=== PATIENT | male | born 1940 | race Caucasian/White ===

== ENCOUNTER 2016-07-27 21:42 | Inpatient (IN) | payer MEDICARE, OTHER ==
[~2016-07-27] VITALS: Ht 175.3 cm; Wt 74.3 kg
[~2016-07-27 21:42] MED LIST: 1-ME1LIQ OR; ASPI325T PO; CARV6.25 PO; CENTTAB9 PO; CINN500C7 PO; CLON-352 PO; FLUO20TA20 PO; GABA300C3 PO; HYDR-2768 PO; KLOR20TA6 PO; LANTUSP SQ; LISI40TA PO; MELA5CAP2 PO; NOVORP2 SQ; OMEGCAP2 OR; PRED10PA PO; SERT100 PO; SIMV40TA PO
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
--- NOTE | 2016-07-27 22:30 | RADRPT ---
EXAM DATE/TIME: 07/27/2016 22:04 [facility] COMPARISON: No previous studies available for comparison. INDICATIONS : Syncope, SOB MEDICAL HISTORY : Carcinoma, prostatic. SURGICAL HISTORY : None. ENCOUNTER: Initial ACUITY: 1 day PAIN SCORE: 2/10 LOCATION: chest FINDINGS: A single view of the chest demonstrates the lungs to be symmetrically aerated without evidence of mas s, infiltrate or effusion. The cardiomediastinal contours are unremarkable. Osseous structures are intact. CONCLUSION: No acute disease. Mahin Lewis MD on July 27, 2016 at 22:28 Board Certified Radiologist. This report was verified electronically.
[2016-07-27 22:39] VITALS: BP 148/72; PULSE 79; RESP 16; TEMP 98.7; O2SAT 100
[2016-07-27 23:09] LABS: APTT (PATIENT) 26.2 SEC (24.3-30.1); INTERNATIONAL NORMALIZED RATIO 1.7 RATIO; PROTHROMBIN TIME - PATIENT 19.2 SEC (9.8-11.6)
--- NOTE | 2016-07-27 23:31 | RADRPT ---
EXAM DATE/TIME: 07/27/2016 23:00 [facility] COMPARISON: No previous studies available for comparison. INDICATIONS : Altered mental status. RADIATION DOSE: 56.35 CTDIvol (mGy) MEDICAL HISTORY : Cerebrovascular disease. Carcinoma, prostate. SURGICAL HISTORY : None. ENCOUNTER: Initial ACUITY: 1 day PAIN SCALE: 0/10 LOCATION: cranial TECHNIQUE: Multiple contiguous axial images were obtained of the head. Using automated exposure control and adj ustment of the mA and/or kV according to patient size, radiation dose was kept as low as reasonably a chievable to obtain optimal diagnostic quality images. FINDINGS: There is marked central and cortical atrophy with dilatation of ventricular and sulcal spaces. Areas of low-attenuation are seen within the white matter. Old left basal ganglia lacunar infarct. There i s no parenchymal hemorrhage, acute infarction or mass lesion identified. There are no extra-axial fl uid collections appreciated. The posterior fossa is unremarkable with midline fourth ventricle. The portion of the orbits and paranasal sinuses visualized are unremarkable. Postsurgical changes in the soft tissues of the occipital region. CONCLUSION: 1. Cerebral atrophy and chronic ischemic small vessel vasculopathy. 2. A left-sided basal ganglia lacunar infarct. Mahin Lewis MD on July 27, 2016 at 23:27 Board Certified Radiologist. This report was verified electronically.
[2016-07-27 23:51] LABS: ALKALINE PHOSPHATASE 55 U/L (45-117); ALT (GPT) 47 U/L (12-78); ANION GAP 11 MEQ/L (5-15); AST (GOT) 44 U/L (15-37); BICARBONATE 23.7 MEQ/L (21.0-32.0); BLOOD UREA NITROGEN 35 MG/DL (7-18); CHLORIDE 101 MEQ/L (98-107); CREATINE KINASE 180 U/L (39-308); GLOMERULAR FILTRATION RATE 31 ML/MIN (>89); SODIUM (NA) 136 MEQ/L (136-145); TOTAL BILIRUBIN ADULT 1.1 MG/DL (0.2-1.0)
[2016-07-27 23:56] LABS: AUTOMATED NEUTROPHIL # 8.9 TH/MM3 (1.8-7.7); BASOPHIL % 0.4 % (0.0-2.0); EOSINOPHIL % 0.1 % (0.0-4.0); HEMATOCRIT 39.1 % (39.0-51.0); HEMO FLAGS DIFF FINAL; LYMPH % 10.2 % (9.0-44.0); LYMPHOCYTE # 1.1 TH/MM3 (1.0-4.8); MEAN CORPUSCULAR HEMOGLOBIN 32.6 PG (27.0-34.0); MEAN CORPUSCULAR HGB CONC 35.4 % (32.0-36.0); MONO % 9.8 % (0.0-8.0); NEUT % 79.5 % (16.0-70.0); PLATELET COUNT 195 TH/MM3 (150-450); RED BLOOD COUNT 4.26 MIL/MM3 (4.50-5.90); RED CELL DISTRIBUTION WIDTH 13.1 % (11.6-17.2); WHITE BLOOD COUNT 11.3 TH/MM3 (4.0-11.0)
[2016-07-28] MEDS ORDERED: NRDRIP (00:16)
[2016-07-28] MEDS ORDERED: LANTUS2P (00:16)
[2016-07-28] MEDS ORDERED: LISI-519 PO (00:16)
[2016-07-28] MEDS ORDERED: HYDR25TA5 PO (00:16)
[2016-07-28] MEDS ORDERED: GABA600T PO (00:16)
[2016-07-28] MEDS ORDERED: ASPI81TA81 (00:16)
[2016-07-28] MEDS ORDERED: CARV25TA PO (00:16)
[2016-07-28] MEDS ORDERED: MELAPOW2 (00:16)
[2016-07-28] MEDS ORDERED: FLUO20CA4 PO (00:16)
[2016-07-28] MEDS ORDERED: CHOL400D2 PO (00:16)
[2016-07-28] MEDS ORDERED: AMLO2.5T PO (00:16)
[2016-07-28] MEDS ORDERED: SIMV40TA PO (00:16)
[2016-07-28 00:18] LABS: ACETAMINOPHEN LESS THAN 2.0 MCG/ML (10.0-30.0); POTASSIUM 4.4 MEQ/L (3.5-5.1)
--- NOTE | 2016-07-28 00:30 | PD ---
Data Data Last Documented VS Vital Signs Date Time Temp Pulse Resp B/P Pulse Ox O2 Delivery O2 Flow Rate FiO2 07/27/16 22:39 98.7 79 16 148/72 100 Orders Electrocardiogram (07/27/16 21:56) Alcohol (Ethanol) (07/27/16 21:56) Ammonia (07/27/16 21:56) Complete Blood Count With Diff (07/27/16 21:56) Comprehensive Metabolic Panel (07/27/16 21:56) Creatine Kinase (Cpk) (07/27/16 21:56) Drug Screen, Random Urine (07/27/16 21:56) Prothrombin Time / Inr (Pt) (07/27/16 21:56) Act Partial Throm Time (Ptt) (07/27/16 21:56) Salicylates (Aspirin) (07/27/16 21:56) Troponin I (07/27/16 21:56) Tylenol (Acetaminophen) (07/27/16 21:56) Lactic Acid Sepsis Protocol (07/27/16 21:56) Urinalysis - C+S If Indicated (07/27/16 21:56) Blood Culture (07/27/16 21:56) Chest, Single Ap (07/27/16 21:56) Ct Brain W/O Iv Contrast(Rout) (07/27/16 21:56) Ecg Monitoring (07/27/16 21:56) Iv Access Insert/Monitor (07/27/16 21:56) Oximetry (07/27/16 21:56) Admit Order (Ed Use Only) (07/28/16 02:20) Labs Laboratory Tests Test 07/27/16 07/27/16 07/27/16 22:10 22:30 23:20 White Blood Count 11.3 TH/MM3 Red Blood Count 4.26 MIL/MM3 Hemoglobin 13.9 GM/DL Hematocrit 39.1 % Mean Corpuscular Volume 92.0 FL Mean Corpuscular Hemoglobin 32.6 PG Mean Corpuscular Hemoglobin 35.4 % Concent Red Cell Distribution Width 13.1 % Platelet Count 195 TH/MM3 Mean Platelet Volume 8.4 FL Neutrophils (%) (Auto) 79.5 % Lymphocytes (%) (Auto) 10.2 % Monocytes (%) (Auto) 9.8 % Eosinophils (%) (Auto) 0.1 % Basophils (%) (Auto) 0.4 % Neutrophils # (Auto) 8.9 TH/MM3 Lymphocytes # (Auto) 1.1 TH/MM3 Monocytes # (Auto) 1.1 TH/MM3 Eosinophils # (Auto) 0.0 TH/MM3 Basophils # (Auto) 0.0 TH/MM3 CBC Comment DIFF FINAL Differential Comment Prothrombin Time 19.2 SEC Prothromb Time International 1.7 RATIO Ratio Activated Partial 26.2 SEC Thromboplast Time Sodium Level 136 MEQ/L Potassium Level 4.4 MEQ/L Chloride Level 101 MEQ/L Carbon Dioxide Level 23.7 MEQ/L Anion Gap 11 MEQ/L Blood Urea Nitrogen 35 MG/DL Creatinine 2.12 MG/DL Estimat Glomerular Filtration 31 ML/MIN Rate Random Glucose 200 MG/DL Calcium Level 9.2 MG/DL Total Bilirubin 1.1 MG/DL Aspartate Amino Transf 44 U/L (AST/SGOT) Alanine Aminotransferase 47 U/L (ALT/SGPT) Alkaline Phosphatase 55 U/L Total Creatine Kinase 180 U/L Troponin I LESS THAN 0.02 NG/ML Total Protein 7.7 GM/DL Albumin 3.7 GM/DL Acetaminophen Level LESS THAN 2.0 MCG/ML Ethyl Alcohol Level LESS THAN 3 MG/DL Lactic Acid Level 1.4 mmol/L Ammonia 26 MCMOL/L Salicylates Level LESS THAN 1.7 MG/DL [facility] Medical Record Reviewed: Yes Supervised Visit with DEBORA: Yes Interpretation(s) CBC & BMP Diagram 07/27/16 22:10 Lactic acid 1.4 LFTs normal Ammonia 26 Tn < 0.02 Aspirin 1.7 APAP < 2.0 EtOH 3 Narrative Course I, Dr. Wu, have reviewed the advance practice practitioner's documentation and am in agreement, met with the patient face to face, made the diagnosis, and the medical decision making was done by me. *My assessment and Findings: She has had an altered mental status essentially described as inability to get up from a seated position. Evidently he was confused as well unable to state his location or the month of the year. Workup today reveals mild prerenal azotemia with some baseline intrinsic medical renal disease. He has received IV hydration. Based on history provided by the patient's landlord TIA may have occurred. Admission for further diagnostic evaluation considered reasonable. CBC & BMP Diagram 07/27/16 22:10 Tn < 0.02 LFTs normal Lactic acid 1.4 Ammonia 26 Salicylates < 1.7 APAP 2.0 EtOH < 3 EKG: normal sinus rhythm, rate 79, old septal infarct Diagnosis Primary Impression: Altered mental status Qualified Code: R41.82 - Altered mental status, unspecified altered mental status type Additional Impressions: Transient ischemic attack (TIA) Qualified Code: G45.9 - Transient cerebral ischemia, unspecified type Prerenal azotemia Admitting Information Admitting Physician Requests: Admit Condition: Stable Daron Wu MD Jul 28, 2016 00:30
[2016-07-28] MEDS ORDERED: ONDANSETRON HCL 4 MG/2 ML VIAL IVP PRN (02:45)
[2016-07-28] MEDS ORDERED: ACETAMINOPHEN/HYDROcodone 325 MG/5 MG TAB PO PRN (02:45)
[2016-07-28] MEDS ORDERED: BISACODYL 10 MG SUPP PR PRN (02:45)
[2016-07-28] MEDS ORDERED: GLUCAGON 1 MG/ML VIAL IM/SQ PRN (02:45)
[2016-07-28] MEDS ORDERED: SODIUM CHLORIDE 0.9% FLUSH 5 ML FLUSH IVF PRN (02:45)
[2016-07-28] MEDS ORDERED: GLUCAGON 1 MG/ML VIAL OTHER PRN (02:45)
[2016-07-28] MEDS ORDERED: ENALAPRILAT 1.25 MG/ML VIAL IV PRN (02:45)
[2016-07-28] MEDS ORDERED: DEXTROSE 50% IN WATER 50 ML VIAL(D50) IV PUSH PRN (02:45)
[2016-07-28] MEDS ORDERED: SODIUM CHLORIDE 0.9% FLUSH 5 ML FLUSH FLUSH PRN (02:45)
[2016-07-28] MEDS ORDERED: ACETAMINOPHEN 325 MG TAB PO PRN (02:45)
[2016-07-28 04:00] VITALS: BP_SYST 170; BP_DIAS 82; BP_DIAS 89; PULSE 84; RESP 20; TEMP 96.7; O2SAT 96
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
[2016-07-28 04:33] LABS: BLOOD, URINE MOD (NEG); COMMENT (UR) CATH-CULTURE IND; CULTURE IF INDICATED CATH CULTURE IND; GLUCOSE,URINE TRACE mg/dL (NEG); HYALINE CAST, URINE 13 /lpf (RARE); KETONE, URINE 10 mg/dL (NEG); MUCUS URINE FEW /lpf (OCC); NITRITE,URINE NEG (NEG); PH, URINE 5.5 (5.0-8.5); URINE COLOR YELLOW (YELLW/STRAW)
[2016-07-28] MEDS: INSULIN ASPART SUPPLEMENTAL SCALE SQ SCH ×4 (04:35→19:23)
[2016-07-28 06:49] LABS: AMPHETAMINE, URINE NEG (NEG); BARBITURATES, URINE NEG (NEG); COCAINE, URINE NEG (NEG)
[2016-07-28] MEDS ORDERED: INSULIN ASPART SUPPLEMENTAL SCALE SQ SCH (07:00)
[2016-07-28] MEDS: GABAPENTIN 300 MG CAP PO SCH ×2 (07:10→19:23)
[2016-07-28] MEDS: ASPIRIN 81 MG CHEW TAB PO SCH (07:23)
[2016-07-28] MEDS: SODIUM CHLORIDE 0.9% FLUSH 5 ML FLUSH IVF SCH ×2 (07:31→19:23)
[2016-07-28 08:00] VITALS: BP 150/77; PULSE 78; RESP 18; TEMP 98.1; O2SAT 99
--- NOTE | 2016-07-28 08:25 | RADRPT ---
EXAM DATE/TIME: 07/28/2016 07:46 [facility] COMPARISON: MRA BRAIN W/O CONTRAST, March 02, 2011, 13:16. INDICATIONS : Stroke. Left-sided basal ganglia lacunar infarct. MEDICAL HISTORY : Cardiovascular disease Carcinoma, prostate. SURGICAL HISTORY : Appendectomy. ENCOUNTER: Initial ACUITY: 1 day PAIN SCORE: 0/10 LOCATION: cranial Please note a normal MRA of the brain does not entirely exclude the possibility of a small aneurysm, nor the possibility of distal intracranial vessel disease. TECHNIQUE: 3D time of flight MRA was performed. Source images, multiplanar STS MIP, and 3D volume MIP reconstru ctions were reviewed. FINDINGS: There is excellent visualization of the major intracranial arteries out to the second-order branch ve ssels. There is no evidence for aneurysm, vessel truncation, and no evidence for vascular malformati on. There is mild atherosclerotic irregularity of the posterior cerebral arteries identified. 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 CONCLUSION: Atherosclerotic disease of the posterior cerebral arteries is identified. Otherwise unremarkable. Braden Griffith MD on July 28, 2016 at 8:22 Board Certified Radiologist. This report was verified electronically.
--- NOTE | 2016-07-28 08:26 | RADRPT ---
EXAM DATE/TIME: 07/28/2016 07:46 [facility] COMPARISON: CT BRAIN W/O CONTRAST, July 27, 2016, 23:00. MRI BRAIN W/O CONTRAST, March 02, 2011, 13:16. INDICATIONS : Stroke. Left-sided basal ganglia lacunar infarct. MEDICAL HISTORY : Cerebrovascular disease. Carcinoma, prostate. SURGICAL HISTORY : Appendectomy. ENCOUNTER: Initial ACUITY: 1 day PAIN SCORE: 0/10 LOCATION: cranial TECHNIQUE: Multiplanar, multisequence MRI of the brain was performed without contrast. FINDINGS: There is no evidence for acute infarction on diffusion weighted imaging. There is mild atrophy. Moder ate confluent increased signal on flair images in the bilateral centrum semiovale and periventricular white matter characteristic of chronic microvascular ischemic disease. There are lacunar infarcts in the bilateral thalami and basal ganglia. No signs of intracranial hemorrhage or mass. CONCLUSION: Atrophy and white matter disease with remote lacunar infarcts. Braden Griffith MD on July 28, 2016 at 8:24 Board Certified Radiologist. This report was verified electronically.
[2016-07-28] MEDS ORDERED: GABAPENTIN 300 MG CAP PO SCH (09:00)
[2016-07-28] MEDS ORDERED: SODIUM CHLORIDE 0.9% FLUSH 5 ML FLUSH FLUSH SCH (09:00)
[2016-07-28 12:00] VITALS: BP 147/74; PULSE 73; RESP 18; TEMP 96.6; O2SAT 99
--- NOTE | 2016-07-28 13:57 | EKG ---
Date Performed: 07/27/2016 Time Performed: 22:54:39 PTAGE: 75 years EKG: Sinus rhythm SEPTAL MYOCARDIAL INFARCTION Compared to previous tracing, the criteria for the septal infarct are n ew. Clinical correlation advised as serial change may be secondary to improper precordial lead place ment on the prior tracing. A repeat tracing would be useful. ABNORMAL ECG PREVIOUS TRACING : 04/23/2011 20.23 DOCTOR: Kareen Perry Interpretating Date/Time 07/28/2016 13:55:53
--- NOTE | 2016-07-28 14:14 | HHI.PR ---
Subjective Remarks Follow up for TIA, PAVEL. The patient states yesterday he became acute weak on both sides, but worse on the left. He states the weakness is better today. He is oriented to self, [facility], but states the year in 1991. The patient denies any other medical complaints including no headache, visual changes, chest pain, shortness of breath, or abdominal complaints. Objective Vitals Vital Signs Date Time Temp Pulse Resp B/P Pulse Ox O2 Delivery O2 Flow Rate FiO2 07/28/16 12:00 96.6 73 18 147/74 99 07/28/16 08:00 98.1 78 18 150/77 99 07/28/16 04:00 96.7 84 20 170/89 96 07/28/16 04:00 170/82 07/27/16 22:39 98.7 79 16 148/72 100 I/O 07/27/16 07/27/16 07/27/16 07/28/16 07/28/16 07/28/16 07:00 15:00 23:00 07:00 15:00 23:00 Intake Total 0 ml Output Total 150 ml Balance -150 ml Intake Oral 0 ml IV Total 0 ml Output Urine Total 150 ml Result Diagram: 07/27/16220907/27/162209 Imaging Last Impressions Head Magnetic Resonance Angiography 07/28/16 0000 Signed Impressions: Service Date/Time: Thursday, July 28, 2016 07:46 - CONCLUSION: Atherosclerotic disease of the posterior cerebral arteries is identified. Otherwise unremarkable. Braden Griffith MD Brain MRI 07/28/16 0000 Signed Impressions: Service Date/Time: Thursday, July 28, 2016 07:46 - CONCLUSION: Atrophy and white matter disease with remote lacunar infarcts. Braden Griffith MD Head CT 07/27/162155 Signed Impressions: Service Date/Time: Wednesday, July 27, 2016 23:00 - CONCLUSION: 1. Cerebral atrophy and chronic ischemic small vessel vasculopathy. 2. A left-sided basal ganglia lacunar infarct. Mahin Lewis MD Chest X-Ray 07/27/162155 Signed Impressions: Service Date/Time: Wednesday, July 27, 2016 22:04 - CONCLUSION: No acute disease. Mahin Lewis MD Objective Remarks GENERAL: Well-nourished, well-developed elderly male patient in NAD. SKIN: Warm and dry. No rash. HEAD: Normocephalic. Atraumatic. EYES: Pupils equal and round. No scleral icterus. No injection or drainage. ENT: No nasal bleeding or discharge. Mucous membranes pink and moist. NECK: Supple. Trachea midline. CARDIOVASCULAR: Regular rate and rhythm. S1, S2 noted. No murmur appreciated. RESPIRATORY: No accessory muscle use. Clear to auscultation. Breath sounds equal bilaterally. GASTROINTESTINAL: Abdomen soft, non-tender, nondistended. Normoactive bowel sounds x4. MUSCULOSKELETAL: No obvious deformities. Extremities without clubbing, cyanosis , or edema. NEUROLOGICAL: Awake and alert, oriented to self and place only. No obvious cranial nerve deficits. Motor grossly within normal limits. 5/5 muscle strength in bilateral upper and lower extremities. Normal speech. Possible very minimal left sided pronator drift. PSYCHIATRIC: Appropriate mood and affect; insight and judgment limited. Medications and IVs Current Medications Medications (Trade) Dose Ordered Sig/Tung Route Start Time Stop Time Status Last Admin (D50w (Vial) Inj) 25 ml UNSCH PRN IV PUSH 07/28/16 02:45 (Glucagon Inj) 1 mg UNSCH PRN OTHER 07/28/16 02:45 (NS Flush) 2 ml BID IVF 07/28/16 09:00 07/28/16 07:31 (NS Flush) 2 ml UNSCH PRN IVF 07/28/16 02:45 (Vasotec Inj) 1.25 mg Q4H PRN IV 07/28/16 02:45 (Aspirin Chew) 81 mg DAILY PO 07/28/16 09:00 07/28/16 07:23 (Pravachol) 40 mg HS PO 07/28/16 21:00 (Zofran Inj) 4 mg Q6H PRN IVP 07/28/16 02:45 (Dulcolax Supp) 10 mg DAILY PRN [place] 07/28/16 02:45 (Tylenol) 650 mg Q6H PRN PO 07/28/16 02:45 ([place] 5-325 Mg) 1 tab Q4H PRN PO 07/28/16 02:45 ([place] 10-325 Mg) 1 tab Q4H PRN PO 07/28/16 02:45 (Neurontin) 600 mg Q12HR PO 07/28/16 09:00 Urinary Catheter: No Vascular Central Line Catheter: No A/P Problem List: (1) TIA (transient ischemic attack) ICD Code: G45.9 Status: Acute (2) PAVEL (acute kidney injury) ICD Code: N17.9 Status: Acute (3) DM (diabetes mellitus) ICD Code: E11.9 Status: Acute (4) HTN (hypertension) ICD Code: I10 Status: Acute Assessment and Plan 75-year-old male with PMH of Anxiety, Depression, Prostate CA, HTN and h/o CVA who was brought to the ER by EMS secondary to confusion and gait instability. Per report, pt lives alone, alicia went to check on pt and noted him to be confused w/ difficulty ambulating and concerned for stroke. TIA: EMS called by patient's landlady for increased confusion and gait instability, concerning for CVA. h/o CVA. No focal neuro deficits. -CT Head w/ old left lacunar infarct, no new findings, images reviewed by me. -Brain MRI with atrophy and white matter disease with remote lacunar infarcts. -Head MRA with atherosclerotic disease, otherwise unremarkable. -IVF, repeat labs in am. -U/a with trace leuks, WBCs, will await urine culture before starting abx. -Start ASA, Statin. -Check HgbA1c, lipid panel -neuro checks, NIH Stroke Scale -Check echo. -Consult neurology. -PT/OT/ST eval PAVEL: Creatinine 2.12, previously 1.59 on 04/23/11. -IVF for hydration, -repeat labs in am. HTN: Controlled. Initially allowing permissive HTN with stroke work up as above. -Hold NATASHA and HCTZ with PAVEL. -Restart patient's Coreg and Norvasc with hold parameters. DM: Blood glucose uncontrolled, 301 today. -Monitor Accucheck and cover with Sliding scale insulin. -Check Hgb A1c. -Start Levemir 5u sq bid -1800 diabetic diet DVT Prophylaxis: SCD/Teds. Written by Ellen Mack, acting as scribe for Dr. Loving on 07/28/16 at 12: 35. The documentation accurately reflects the work performed [id number] by ok, Dr. Loving on 07/28/16 at 12:35. Ellen Mack PA-C Jul 28, 2016 14:14 Bola Loving MD Jul 28, 2016 22:47
[2016-07-28] MEDS ORDERED: PILL SPLITTER OTHER PRN (14:30)
[2016-07-28] MEDS: PRAVASTATIN SOD 80 MG TAB PO SCH (19:23)
[2016-07-28] MEDS: CARVEDILOL 12.5 MG TAB PO SCH (19:23)
[2016-07-28] MEDS: INSULIN DETEMIR 100 UNITS/ML VIAL SQ SCH (19:23)
[2016-07-28 19:45] VITALS: PULSE 77
[2016-07-28 20:00] VITALS: BP 131/77; PULSE 76; RESP 20; TEMP 97.1; O2SAT 99
[2016-07-28] MEDS ORDERED: PRAVASTATIN SOD 40 MG TAB PO SCH (21:00)
[2016-07-28 21:01] LABS: MEAN CORPUSCULAR HGB CONC 36.1 % (32.0-36.0)
[2016-07-29] VITALS (7 sets, daily range): BP systolic 96–176; BP diastolic 57–84; PULSE 67–86; RESP 18–20; TEMP 96.6–98.8; O2SAT 94–99
[2016-07-29] MEDS ORDERED: SODIUM CHLOR 0.9% 250 ML INJ 250 ML IV ONE (04:30)
[2016-07-29] MEDS: SODIUM CHLOR 0.9% 1000 ML INJ 1,000 ML IV SCH ×2 (04:42→16:25)
[2016-07-29] MEDS: INSULIN ASPART SUPPLEMENTAL SCALE SQ SCH ×4 (04:46→20:23)
--- NOTE | 2016-07-29 05:20 | MB ---
cc: ROGERIO NIETO MD DATE OF CONSULTATION: 07/28/2016 REASON FOR CONSULTATION: Possible TIA. HISTORY OF PRESENT ILLNESS A 75-year-old male with past medical history of anxiety, depression, prostate cancer, hypertension, with history of stroke, with mild residual weakness of the right side, was brought to the emergency room at [facility] due to confusion and gait instability, and multiple falls. The patient lives alone. He was found confused by the land lady with difficulty ambulating. The patient denies headache, blurred vision, double vision, slurred speech. REVIEW OF SYSTEMS A 12-point review of systems is negative except for what is stated in the HPI. PAST MEDICAL HISTORY 1. Anxiety/depression 2. Prostate cancer 3. Hypertension 4. History of stroke with mild residual right-sided weakness and slurred speech. PAST SURGICAL HISTORY Appendectomy. ALLERGIES NO KNOWN DRUG ALLERGIES. FAMILY HISTORY Noncontributory. SOCIAL HISTORY Occasional alcohol, negative for tobacco or recreational drugs. PHYSICAL EXAMINATION General: Awake, alert, oriented, pleasant, cooperative, not in acute distress. HEENT: Atraumatic, normocephalic. Vision intact. Intact hearing. Respiratory: Clear to auscultation. No rhonchi or wheezes. Musculoskeletal: Extremities without clubbing, cyanosis or edema. Moves all extremities. Neurological: Awake, alert, oriented to time, person and place. Slurred speech (chronic). Cranial nerve examination is grossly intact. Mild upper and lower extremity weakness, grade 5 minus on the right shoulder abduction and wrist extension, flexion and foot dorsiflexion. Left lower extremity 5/5 bilateral. Sensation intact bilateral and symmetrical to pain and temperature. Cerebellar function, [id number], [id number] are intact. Psychological: Mood and behavior are normal. LABORATORY DATA: White blood cell 0.3, hemoglobin 13.9, INR 1.7, sodium 136, potassium 4.4, chloride 101, anion gap 11, blood urea nitrogen 35, creatinine 2.12, calcium 9.2, AST 44, ALT 47, alkaline phosphatase 55. DIAGNOSTIC IMAGING STUDIES - Head CT scan without contrast revealed cerebral atrophy and chronic ischemic small vessel vasculopathy, left-sided basal ganglia lacunar infarct. - Brain MRI without contrast revealed atrophy and white matter disease with remote lacunar infarct on the bilateral basal ganglia, no hemorrhage or mass. - Head MRA without contrast revealed atherosclerotic disease, posterior cerebral arteries otherwise unremarkable. DIAGNOSTIC IMPRESSION: - TIA versus recurrence old stroke symptoms. - Multiple falls. PLAN 1. Neuro checks q4 hourly. 2. Continue aspirin 81 mg daily. 3. PT/OT recommendations are appreciated. 4. Inpatient rehabilitation pending PT/OT assessment. 5. DVT prophylaxis with SCDs. 6. GI prophylaxis. Thank you for the opportunity to participate in the care of your patient MD DEIRDRE Garcia/RUBEN /9:25 PM /5:05 AM LUZMARIA
[2016-07-29 07:06] LABS: AUTOMATED NEUTROPHIL # 4.2 TH/MM3 (1.8-7.7); BASOPHIL # 0.1 TH/MM3 (0-0.2); BASOPHIL % 0.7 % (0.0-2.0); EOSINOPHIL # 0.2 TH/MM3 (0-0.4); EOSINOPHIL % 2.1 % (0.0-4.0); HEMATOCRIT 33.9 % (39.0-51.0); LYMPH % 26.6 % (9.0-44.0); MEAN CELL VOLUME 90.8 FL (80.0-100.0); MEAN CORPUSCULAR HEMOGLOBIN 32.8 PG (27.0-34.0); MONO % 15.9 % (0.0-8.0); NEUT % 54.7 % (16.0-70.0); PLATELET COUNT 169 TH/MM3 (150-450); RED BLOOD COUNT 3.74 MIL/MM3 (4.50-5.90); RED CELL DISTRIBUTION WIDTH 13.6 % (11.6-17.2); WHITE BLOOD COUNT 7.6 TH/MM3 (4.0-11.0)
[2016-07-29 07:16] LABS: ALKALINE PHOSPHATASE 45 U/L (45-117); ALT (GPT) 51 U/L (12-78); ANION GAP 11 MEQ/L (5-15); AST (GOT) 37 U/L (15-37); BLOOD UREA NITROGEN 42 MG/DL (7-18); CHLORIDE 99 MEQ/L (98-107); GLOMERULAR FILTRATION RATE 25 ML/MIN (>89); HDL CHOLESTEROL 43.8 MG/DL (40.0-60.0); LDL CHOLESTEROL 46 MG/DL (0-99); POTASSIUM 3.2 MEQ/L (3.5-5.1); SODIUM (NA) 136 MEQ/L (136-145); TOTAL BILIRUBIN ADULT 0.6 MG/DL (0.2-1.0)
[2016-07-29 07:58] LABS: HEMO FLAGS AUTO DIFF
[2016-07-29] MEDS: ASPIRIN 81 MG CHEW TAB PO SCH (08:16)
[2016-07-29] MEDS: FLUoxetine HCL 20 MG CAP PO SCH (08:16)
[2016-07-29] MEDS: CARVEDILOL 12.5 MG TAB PO SCH ×2 (08:16→20:19)
[2016-07-29] MEDS: amLODIPine BESYLATE 5 MG TAB PO SCH (08:16)
[2016-07-29] MEDS: GABAPENTIN 300 MG CAP PO SCH ×2 (08:16→15:47)
[2016-07-29] MEDS: INSULIN DETEMIR 100 UNITS/ML VIAL SQ SCH ×2 (08:18→20:20)
[2016-07-29] MEDS: SODIUM CHLORIDE 0.9% FLUSH 5 ML FLUSH IVF SCH ×2 (08:23→20:20)
[2016-07-29 12:25] LABS: SCAN/DIFF AUTO DIFF CONFIRMED
--- NOTE | 2016-07-29 13:03 | HHI.PR ---
Subjective Remarks Follow up for TIA, PAVEL. The patient states he feels "weak on both sides" today, however he was able to walk to the door and back with assistance today. He lives alone. He denies any other medical complaints including no headache, lightheadedness, dizziness, chest pain or shortness of breath. RN reported possible difficulty urinating overnight, didn't urinate for 8 hours however bedside bladder scan revealed less than 200cc. RN this morning was able to stand the patient up and he urinated ~200cc. The patient denies any difficulty urinating, dysuria, or abdominal pains. Objective Vitals Vital Signs Date Time Temp Pulse Resp B/P Pulse Ox O2 Delivery O2 Flow Rate FiO2 07/29/16 12:00 98.3 86 18 117/61 98 07/29/16 08:00 97.8 69 18 135/70 98 07/29/16 04:00 96.8 67 20 96/57 94 07/29/16 00:00 98.8 70 20 113/72 99 07/28/16 20:00 97.1 76 20 131/77 99 07/28/16 19:45 77 I/O 07/28/16 07/28/16 07/28/16 07/29/16 07/29/16 07/29/16 07:00 15:00 23:00 07:00 15:00 23:00 Intake Total 0 ml 180 ml 120 ml 250 ml 453 ml Output Total 150 ml 275 ml 0 ml 0 ml 200 ml Balance -150 ml -95 ml 120 ml 250 ml 253 ml Intake Oral 0 ml 180 ml 120 ml 0 ml IV Total 0 ml 0 ml 250 ml 453 ml Output Urine Total 150 ml 275 ml 0 ml 0 ml 200 ml Bladder Scan Volume Amount 183 ml # Bowel Movements 0 Result Diagram: 07/29/16 0542 07/29/16 0542 Imaging Last Impressions Head Magnetic Resonance Angiography 07/28/16 0000 Signed Impressions: Service Date/Time: Thursday, July 28, 2016 07:46 - CONCLUSION: Atherosclerotic disease of the posterior cerebral arteries is identified. Otherwise unremarkable. Braden Griffith MD Brain MRI 07/28/16 0000 Signed Impressions: Service Date/Time: Thursday, July 28, 2016 07:46 - CONCLUSION: Atrophy and white matter disease with remote lacunar infarcts. Braden Griffith MD Head CT 07/27/162155 Signed Impressions: Service Date/Time: Wednesday, July 27, 2016 23:00 - CONCLUSION: 1. Cerebral atrophy and chronic ischemic small vessel vasculopathy. 2. A left-sided basal ganglia lacunar infarct. Mahin Lewis MD Chest X-Ray 07/27/162155 Signed Impressions: Service Date/Time: Wednesday, July 27, 2016 22:04 - CONCLUSION: No acute disease. Mahin Lewis MD Objective Remarks GENERAL: Well-nourished, well-developed elderly male patient in NAD. SKIN: Warm and dry. No rash. HEAD: Normocephalic. Atraumatic. ENT: No nasal bleeding or discharge. Mucous membranes pink and moist. NECK: Supple. Trachea midline. CARDIOVASCULAR: Regular rate and rhythm. S1, S2 noted. No murmur appreciated. RESPIRATORY: No accessory muscle use. Clear to auscultation. Breath sounds equal bilaterally. GASTROINTESTINAL: Abdomen soft, non-tender, nondistended. Normoactive bowel sounds x4. MUSCULOSKELETAL: No obvious deformities. Extremities without clubbing, cyanosis , or edema. NEUROLOGICAL: Awake and alert, oriented to self and place only. No obvious cranial nerve deficits. Motor grossly within normal limits. Generalized 4/5 weakness of b/l upper and lower extremities. Normal speech. PSYCHIATRIC: Appropriate mood and affect; insight and judgment limited. Medications and IVs Current Medications Medications (Trade) Dose Ordered Sig/Tung Route Start Time Stop Time Status Last Admin (D50w (Vial) Inj) 25 ml UNSCH PRN IV PUSH 07/28/16 02:45 (Glucagon Inj) 1 mg UNSCH PRN OTHER 07/28/16 02:45 (NS Flush) 2 ml BID IVF 07/28/16 09:00 07/29/16 08:23 (NS Flush) 2 ml UNSCH PRN IVF 07/28/16 02:45 (Vasotec Inj) 1.25 mg Q4H PRN IV 07/28/16 02:45 (Aspirin Chew) 81 mg DAILY PO 07/28/16 09:00 07/29/16 08:16 (Zofran Inj) 4 mg Q6H PRN IVP 07/28/16 02:45 (Dulcolax Supp) 10 mg DAILY PRN [place] 12/31/16 02:45 (Tylenol) 650 mg Q6H PRN PO 07/28/16 02:45 ([place] 5-325 Mg) 1 tab Q4H PRN PO 07/28/16 02:45 ([place] 10-325 Mg) 1 tab Q4H PRN PO 07/28/16 02:45 (Norvasc) 2.5 mg DAILY PO 07/29/16 09:00 07/29/16 08:16 (Coreg) 25 mg BID PO 07/28/16 21:00 07/29/16 08:16 (PROzac) 60 mg DAILY PO 07/29/16 09:00 07/29/16 08:16 (Pravachol) 80 mg HS PO 07/28/16 21:00 07/28/16 19:23 (Levemir Inj) 5 units Q12HR SQ 07/28/16 21:00 07/29/16 08:18 Miscellaneous 1 ea 1 ea UNSCH PRN OTHER 07/28/16 14:30 07/29/16 08:16 (NS 1000 ml Inj) 1,000 ml @ 84 mls/hr [id number] IV 07/29/16 04:30 07/29/16 04:42 (Neurontin) 100 mg Q8H PO 07/29/16 09:00 07/29/16 08:16 Urinary Catheter: No Vascular Central Line Catheter: No A/P Problem List: (1) TIA (transient ischemic attack) ICD Code: G45.9 Status: Acute (2) PAVEL (acute kidney injury) ICD Code: N17.9 Status: Acute (3) DM (diabetes mellitus) ICD Code: E11.9 Status: Acute (4) HTN (hypertension) ICD Code: I10 Status: Acute Assessment and Plan 75-year-old male with PMH of Anxiety, Depression, Prostate CA, HTN and h/o CVA who was brought to the ER by EMS secondary to confusion and gait instability. Per report, pt lives alone, tazlacori went to check on pt and noted him to be confused w/ difficulty ambulating and concerned for stroke. TIA: EMS called by patient's landlady for increased confusion and gait instability, concerning for CVA. h/o CVA. No focal neuro deficits. -CT Head w/ old left lacunar infarct, no new findings, images reviewed by me. -Brain MRI with atrophy and white matter disease with remote lacunar infarcts. -Head MRA with atherosclerotic disease, otherwise unremarkable. -U/a with trace leuks, WBCs, urine culture with no growth x24hrs, will hold off on abx -Start ASA 81mg daily, Statin. -Check HgbA1c, lipid panel wnl -neuro checks, NIH Stroke Scale -Awaiting echo. -Consult neurology, appreciate recs -PT/OT/ST eval, patient needs rehab placement, case management consulted PAVEL: Creatinine 2.12, previously 1.59 on 04/23/11. -Given IVF for hydration -repeat labs today show worsening renal function with Cr 2.49 -check renal U/S -continue IVF, and repeat labs in the morning HTN: Controlled. Initially allowing permissive HTN with stroke work up as above. -Hold NATASHA and HCTZ with PAVEL. -Restart patient's Coreg and Norvasc with hold parameters. DM: Blood glucose uncontrolled, 301 today. -Monitor Accucheck and cover with Sliding scale insulin. -Check Hgb A1c. -Started Levemir 5u sq bid -1800 diabetic diet DVT Prophylaxis: SCD/Teds. Written by Ellen Mack, acting as scribe for Dr. Loving on 07/29/16 at 10:40. Discharge Planning PT recommending rehab placement, case management consulted. Awaiting echocardiogram, renal U/S. Attending Statement The documentation accurately reflects the work performed [id number] by me, Dr. Loving on 07/29/16 at 10:40. Ellen Mack PA-C Jul 29, 2016 13:03 Bola Loving MD Jul 29, 2016 23:11
[2016-07-29] MEDS: PRAVASTATIN SOD 80 MG TAB PO SCH (20:19)
[2016-07-29] MEDS: ACETAMINOPHEN/HYDROcodone 325 MG/10 MG TAB PO PRN (22:22)
[2016-07-30] VITALS: BP 152/80; PULSE 70; RESP 22; TEMP 97.2; O2SAT 99
[2016-07-30] MEDS: GABAPENTIN 300 MG CAP PO SCH (00:35)
[2016-07-30] MEDS: ACETAMINOPHEN/HYDROcodone 325 MG/10 MG TAB PO PRN ×4 (02:29→22:54)
[2016-07-30 04:00] VITALS: BP 183/83; PULSE 67; RESP 20; TEMP 96.1; O2SAT 97
[2016-07-30] MEDS: SODIUM CHLOR 0.9% 1000 ML INJ 1,000 ML IV SCH ×2 (04:17→17:54)
[2016-07-30] MEDS: INSULIN ASPART SUPPLEMENTAL SCALE SQ SCH ×4 (05:07→21:00)
[2016-07-30 05:48] LABS: AUTOMATED NEUTROPHIL # 4.9 TH/MM3 (1.8-7.7); BASOPHIL # 0.1 TH/MM3 (0-0.2); BASOPHIL % 0.8 % (0.0-2.0); EOSINOPHIL # 0.2 TH/MM3 (0-0.4); EOSINOPHIL % 2.5 % (0.0-4.0); HEMATOCRIT 35.2 % (39.0-51.0); HEMO FLAGS DIFF FINAL; LYMPH % 23.4 % (9.0-44.0); LYMPHOCYTE # 1.9 TH/MM3 (1.0-4.8); MEAN CELL VOLUME 90.7 FL (80.0-100.0); MEAN CORPUSCULAR HEMOGLOBIN 31.8 PG (27.0-34.0); MONO % 13.3 % (0.0-8.0); PLATELET COUNT 162 TH/MM3 (150-450); RED BLOOD COUNT 3.88 MIL/MM3 (4.50-5.90); RED CELL DISTRIBUTION WIDTH 13.1 % (11.6-17.2); WHITE BLOOD COUNT 8.1 TH/MM3 (4.0-11.0)
[2016-07-30 06:09] LABS: BICARBONATE 25.7 MEQ/L (21.0-32.0); POTASSIUM 3.4 MEQ/L (3.5-5.1)
[2016-07-30] MEDS ORDERED: ZOLO100T PO (07:46)
[2016-07-30 08:00] VITALS: BP 139/67; PULSE 65; RESP 16; TEMP 96; O2SAT 99
[2016-07-30] MEDS: SODIUM CHLORIDE 0.9% FLUSH 5 ML FLUSH IVF SCH ×2 (09:00→21:00)
[2016-07-30] MEDS: ASPIRIN 81 MG CHEW TAB PO SCH (09:01)
[2016-07-30] MEDS: GABAPENTIN 100 MG CAP PO SCH ×3 (09:01→22:54)
[2016-07-30] MEDS: FLUoxetine HCL 20 MG CAP PO SCH (09:02)
[2016-07-30] MEDS: amLODIPine BESYLATE 5 MG TAB PO SCH (09:02)
[2016-07-30] MEDS: INSULIN DETEMIR 100 UNITS/ML VIAL SQ SCH ×2 (09:02→21:34)
[2016-07-30] MEDS: CARVEDILOL 12.5 MG TAB PO SCH ×2 (09:02→21:33)
[2016-07-30 12:00] VITALS: BP 103/60; PULSE 65; RESP 16; TEMP 97; O2SAT 97
--- NOTE | 2016-07-30 13:49 | RADRPT ---
EXAM DATE/TIME: 07/30/2016 09:41 [place] COMPARISON: No previous studies available for comparison. INDICATIONS : Increased BUN and Creatinine. MEDICAL HISTORY : Hypercholesterolemia. Myocardial infarction. Hypertension. Cerebrovascular accident. Syncope. Irregul ar heartbeat. Kidney stones. Prostate cancer. Inguinal hernia. Arthritis. Diabetes. Depression. Anxie ty. SURGICAL HISTORY : Tonsillectomy. Prostatectomy. Appendectomy. Left eye laser retina surgery. Shrapnel removal. ENCOUNTER: Initial ACUITY: 2 days PAIN SCORE: 0/10 LOCATION: Bilateral flank MEASUREMENTS: RIGHT KIDNEY: 10.2 x 6.5 x 5.5 cm LEFT KIDNEY: 10.9 x 4.8 x 5.4 cm FINDINGS: RIGHT KIDNEY: Renal cortex is normal in thickness and echotexture. No hydronephrosis, stone, or mass. LEFT KIDNEY: Renal cortex is normal in thickness and echotexture. No hydronephrosis, stone, or mass. BLADDER: Within normal limits given the degree of distension. CONCLUSION: Normal examination. Braden Griffith MD on July 30, 2016 at 13:47 Board Certified Radiologist. This report was verified electronically.
--- NOTE | 2016-07-30 15:32 | EC ---
Study Study Date:07/30/2016 STUDY CONCLUSIONS SUMMARY - Left ventricle: The cavity size was normal. Wall thickness was normal. Systolic function was normal. The estimated ejection fraction was in the range of 55% to 60%. Wall motion was normal; there were no regional wall motion abnormalities. Doppler parameters are consistent with abnormal left ventricular relaxation (grade 1 diastolic dysfunction). - Aortic valve: Valve area: 1.27cm^2(VTI). Valve area: 1.15cm^2 (Vmax). - Mitral valve: Mild regurgitation. - Tricuspid valve: Mild regurgitation. If LV function is below 40, please consider prescribing an ACEI or ARB or document rationale for non-use. PROCEDURE DATA STUDY STATUS: Elective. Procedure: Transthoracic echocardiography. Image quality was good. Scanning was performed from the parasternal, apical, and subcostal acoustic windows. Study completion: The patient tolerated the procedure well. Transthoracic echocardiography. M-mode, complete 2D, complete spectral Doppler, and color Doppler. Height: Height: 69in. Weight: Weight: 170.6lb. Body mass index: BMI: 25.3kg/m^2. Body surface area: BSA: 1.93m^2. Patient status: Inpatient. CARDIAC ANATOMY LEFT VENTRICLE: The cavity size was normal. Wall thickness was normal. Systolic function was normal. The estimated ejection fraction was in the range of 55% to 60%. Wall motion was normal; there were no regional wall motion abnormalities. Doppler parameters are consistent with abnormal left ventricular relaxation (grade 1 diastolic dysfunction). AORTIC VALVE: Trileaflet; normal thickness leaflets. Doppler: Transvalvular velocity was within the normal range. There was no stenosis. Trace to mild regurgitation. Valve area: 1.27cm^2(VTI). Indexed valve area: 0.66cm^2/m^2 (VTI). Valve area: 1.15cm^2 (Vmax). Indexed valve area: 0.6cm^2/m^2 (Vmax). Mean gradient: 5mm Hg (S). AORTA: Aortic root: The aortic root was normal in size. MITRAL VALVE: Structurally normal valve. Doppler: Transvalvular velocity was within the normal range. There was no evidence for stenosis. Mild regurgitation. LEFT ATRIUM: The atrium was normal in size. RIGHT VENTRICLE: The cavity size was normal. Wall thickness was normal. PULMONIC VALVE: Doppler: Transvalvular velocity was within the normal range. There was no evidence for stenosis. No regurgitation. TRICUSPID VALVE: Structurally normal valve. Doppler: Transvalvular velocity was within the normal range. Mild regurgitation. PULMONARY ARTERY: The main pulmonary artery was normal-sized. Systolic pressure was within the normal range. RIGHT ATRIUM: The atrium was normal in size. PERICARDIUM: There was no pericardial effusion. SYSTEMIC VEINS: Inferior vena cava: The vessel was normal in size. Patient weight: 170.6lb _Ejection fraction:_ 65-75% _Fractional shortening:_ 32% up to 5Kg 5-11.5Kg 11.6-22.9Kg 23-45Kg 45-57Kg Aortic Root 7-13 <17 13-22 17-27 17-27 LA diam 6-13 <23 24-38 33-47 37-40 RVID 10-17 7-15 7-15 7-18 8-17 LVIDd 12-22 <32 24-38 33-47 37-40 LVPW 2-4 3-6 5-7 6-8 7-8 IVS 2-4 3-6 5-7 6-8 7-8 BASIC MEASUREMENTS ADULT NORMAL Left ventricle LV internal dimension, ED, chordal *38.5 mm 43-52 level, PLAX LV internal dimension, ES, chordal 28.5 mm 23-38 level, PLAX Fractional shortening, chordal level, *26 % >29 PLAX LV posterior wall thickness, ED 11.5 mm IVS/LVPW ratio, ED 1 <1.3 Ventricular septum Septal thickness, ED 11.5 mm Aortic valve Leaflet separation 19 mm 15-26 Aorta Root diameter, ED 34 mm Left atrium Anterior-posterior dimension 36 mm Anterior-posterior dimension index 1.87 cm/m^2 <2.2 Right ventricle RV internal dimension, ED, PLAX 34.3 mm 19-38 BASIC MEASUREMENTS ADULT NORMAL Aortic valve Leaflet separation 19 mm 15-26 DOPPLER MEASUREMENTS ADULT NORMAL Main pulmonary artery Pressure, S 22 mm Hg =30 Aortic valve Peak velocity, S 146 cm/s Mean velocity, S 102 cm/s VTI, S 33.7 cm Mean gradient, S 5 mm Hg Valve area, VTI 1.27 cm^2 Valve area index, VTI 0.66 cm^2/m^2 Valve area, Vmax 1.15 cm^2 Valve area index, Vmax 0.6 cm^2/m^2 Regurgitant velocity, ED 394 cm/s Regurgitant deceleration 1300 cm/s^2 Regurgitant pressure half-time 890 ms Regurgitant gradient, ED 62 mm Hg Mitral valve Peak E-wave velocity 66.2 cm/s Peak A-wave velocity 103 cm/s Deceleration time 194 ms 150-230 Peak E/A ratio 0.6 Tricuspid valve Regurgitant peak velocity 215 cm/s Peak RV-RA gradient, S 18 mm Hg Systemic veins Estimated CVP 5 mm Hg Right ventricle RV pressure, S 23 mm Hg <30 Pulmonic valve Peak velocity, S 61.2 cm/s LEGEND: Mean values are shown as u=mean value. Asterisk (*) le values outside specified normal range. Prepared and signed by Maynor Calhoun [id number]
[2016-07-30 16:00] VITALS: BP 157/72; PULSE 58; RESP 16; TEMP 96.4; O2SAT 98
[2016-07-30] MEDS ORDERED: amLODIPine BESYLATE 5 MG TAB PO ONE (17:30)
--- NOTE | 2016-07-30 17:34 | HHI.PR ---
Subjective Remarks Patient seen today around 11 AM. Says he feels well. He does report left lower jaw tooth pain. Past couple days. Tenderness to palpation. He is requesting antibiotics. No fevers. No bowel movement. No abdominal pain. No nausea. Objective Vital Signs Date Time Temp Pulse Resp B/P Pulse Ox O2 Delivery O2 Flow Rate FiO2 07/30/16 16:00 96.4 58 16 157/72 98 07/30/16 12:00 97.0 65 16 103/60 97 07/30/16 08:00 96.0 65 16 139/67 99 07/30/16 04:00 96.1 67 20 183/83 97 07/30/16 03:29 20 07/30/16 00:00 97.2 70 22 152/80 99 07/29/16 20:00 96.7 73 20 176/84 97 07/29/16 19:31 18 07/29/16 19:26 73 I/O 07/29/16 07/29/16 07/29/16 07/30/16 07/30/16 07/30/16 06:59 14:59 22:59 06:59 14:59 22:59 Intake Total 250 ml 933 ml 1368 ml 956 ml 740 ml Output Total 0 ml 750 ml 750 ml 1150 ml 300 ml Balance 250 ml 183 ml 618 ml -194 ml 440 ml Intake Oral 0 ml 480 ml 720 ml 240 ml 740 ml IV Total 250 ml 453 ml 648 ml 716 ml Output Urine Total 0 ml 750 ml 750 ml 1150 ml 300 ml Bladder Scan Volume Amount 183 ml # Bowel Movements 0 0 0 Result Diagram: 07/30/16 0501 07/30/16 0501 Objective Remarks GENERAL: Patient sitting up in chair. He is alert. Pleasant. SKIN: Warm and dry. HEAD: Normocephalic. Patient does have very poor dentition area and single molar remaining on the left side. Tenderness to palpation. no abscess or drainage visualized. EYES: No scleral icterus. No injection or drainage. NECK: Supple, trachea midline. No JVD. CARDIOVASCULAR: Regular rate and rhythm without murmurs, gallops, or rubs. RESPIRATORY: Breath sounds equal bilaterally. No accessory muscle use. GASTROINTESTINAL: Abdomen soft, non-tender, nondistended. MUSCULOSKELETAL: No cyanosis, or edema. BACK: Nontender without obvious deformity. No CVA tenderness. A/P Assessment and Plan 07/30/16 Hypokalemia. Improving without replacement. Dental pain. Tenderness to palpation of left lower jaw molar. No abscess seen. Augmentin started /. Patient will need follow-up with dentist after discharge. Echocardiogram negative for vegetation or thrombus. 75-year-old male with PMH of Anxiety, Depression, Prostate CA, HTN and h/o CVA who was brought to the ER by EMS secondary to confusion and gait instability. Per report, pt lives alone, alicia went to check on pt and noted him to be confused w/ difficulty ambulating and concerned for stroke. //TIA: EMS called by patient's cynthiady for increased confusion and gait instability, concerning for CVA. h/o CVA. No focal neuro deficits. -CT Head w/ old left lacunar infarct, no new findings, images reviewed by me. -Brain MRI with atrophy and white matter disease with remote lacunar infarcts. -Head MRA with atherosclerotic disease, otherwise unremarkable. -U/a with trace leuks, WBCs, urine culture with no growth x24hrs, will hold off on abx -Start ASA 81mg daily, Statin. -Check HgbA1c, lipid panel wnl -neuro checks, NIH Stroke Scale -echo negative for thrombus. -Appreciate neurology assistance. Continue and coagulation. -PT/OT/ST eval, patient needs rehab placement, case management consulted //PAVEL on chronic kidney disease unknown stage, at least stage III: Creatinine 2.12, previously 1.59 on 04/23/11. -Given IVF for hydration -repeat labs today show worsening renal function with Cr 2.49 -check renal U/S-normal. -Discontinue IV fluids. //HTN: //Grade 1 diastolic dysfunction on echocardiogram HTN-blood pressure elevated in the 180s systolic.. Initially allowing permissive HTN with stroke work up as above. -Hold NATASHA and HCTZ with PAVEL. =1/2 Continue home Coreg 25 mg twice daily. Increase Norvasc to 5 mg daily. //DM: Blood glucose uncontrolled, 301 today. -Monitor Accucheck and cover with Sliding scale insulin. -Check Hgb A1c. -Started Levemir 5u sq bid -1800 diabetic diet //Dental infection. No abscess. Follow-up with dentist within 2 weeks. //DVT Prophylaxis: SCD/Teds. Discharge Planning Echocardiogram negative for thrombus or vegetation. Can discharge to inpatient rehabilitation when cleared by neurology. Bola Loving MD Jul 30, 2016 17:34
[2016-07-30] MEDS ORDERED: GABA100C4 PO (17:40)
[2016-07-30] MEDS ORDERED: AMOX875T2 PO (17:40)
[2016-07-30] MEDS ORDERED: AMLO2.5T PO (17:40)
[2016-07-30] MEDS ORDERED: NOVOLOGSS SQ (17:40)
[2016-07-30] MEDS ORDERED: LEVEMIR SQ (17:40)
[2016-07-30] MEDS ORDERED: ASPI1TAB69 PO (17:40)
[2016-07-30 17:44] LABS: HEMOGLOBIN A1a 1.1 %; HEMOGLOBIN A1b 1.5 %; HEMOGLOBIN Ao 85.2 %; HEMOGLOBIN LA1C 1.9 %; HEMOGLOBIN P3 3.9 %
[2016-07-30] MEDS ORDERED: MAGNESIUM HYDROXIDE SUSP 30 ML CUP PO ONE (17:45)
[2016-07-30] MEDS ORDERED: DOCUSATE SODIUM 50 MG/SENNA 8.6 MG TAB PO ONE (17:45)
[2016-07-30 20:00] VITALS: BP 121/76; PULSE 68; PULSE 81; RESP 18; TEMP 97; O2SAT 98
[2016-07-30] MEDS: PRAVASTATIN SOD 80 MG TAB PO SCH (21:33)
[2016-07-30] MEDS: AMOXICILLIN/CLAVULANATE K 875 MG TAB PO SCH (22:54)
[2016-07-31] VITALS: BP_SYST 83; PULSE 73; RESP 16; TEMP 97.7; O2SAT 97
[2016-07-31] MEDS: SODIUM CHLOR 0.9% 1000 ML INJ 1,000 ML IV SCH (03:41)
[2016-07-31 04:00] VITALS: BP 168/80; PULSE 67; RESP 22; TEMP 97.4; O2SAT 96
[2016-07-31 05:46] LABS: AUTOMATED NEUTROPHIL # 4.5 TH/MM3 (1.8-7.7); BASOPHIL # 0.1 TH/MM3 (0-0.2); EOSINOPHIL # 0.2 TH/MM3 (0-0.4); EOSINOPHIL % 2.8 % (0.0-4.0); HEMATOCRIT 37.3 % (39.0-51.0); HEMO FLAGS DIFF FINAL; LYMPH % 29.8 % (9.0-44.0); LYMPHOCYTE # 2.4 TH/MM3 (1.0-4.8); MEAN CELL VOLUME 91.3 FL (80.0-100.0); MEAN CORPUSCULAR HEMOGLOBIN 32.2 PG (27.0-34.0); MEAN CORPUSCULAR HGB CONC 35.2 % (32.0-36.0); MONO % 9.8 % (0.0-8.0); NEUT % 56.6 % (16.0-70.0); PLATELET COUNT 208 TH/MM3 (150-450); RED BLOOD COUNT 4.08 MIL/MM3 (4.50-5.90); RED CELL DISTRIBUTION WIDTH 13.5 % (11.6-17.2); WHITE BLOOD COUNT 7.9 TH/MM3 (4.0-11.0)
[2016-07-31 06:01] LABS: BICARBONATE 25.7 MEQ/L (21.0-32.0); POTASSIUM 3.9 MEQ/L (3.5-5.1)
[2016-07-31] MEDS: INSULIN ASPART SUPPLEMENTAL SCALE SQ SCH ×2 (06:10→11:23)
[2016-07-31] MEDS: ACETAMINOPHEN/HYDROcodone 325 MG/10 MG TAB PO PRN (06:11)
[2016-07-31 08:00] VITALS: BP 126/73; PULSE 67; RESP 16; TEMP 97.5; O2SAT 98
[2016-07-31 08:50] VITALS: PULSE 69
[2016-07-31] MEDS: SODIUM CHLORIDE 0.9% FLUSH 5 ML FLUSH IVF SCH (09:00)
[2016-07-31] MEDS ORDERED: amLODIPine BESYLATE 5 MG TAB PO SCH (09:00)
[2016-07-31] MEDS: CARVEDILOL 12.5 MG TAB PO SCH (09:02)
[2016-07-31] MEDS: GABAPENTIN 100 MG CAP PO SCH (09:02)
[2016-07-31] MEDS: AMOXICILLIN/CLAVULANATE K 875 MG TAB PO SCH (09:02)
[2016-07-31] MEDS: ASPIRIN 81 MG CHEW TAB PO SCH (09:02)
[2016-07-31] MEDS: INSULIN DETEMIR 100 UNITS/ML VIAL SQ SCH (09:04)
[2016-07-31] MEDS: FLUoxetine HCL 20 MG CAP PO SCH (09:08)
[2016-07-31] MEDS ORDERED: DOCUSATE SODIUM 50 MG/SENNA 8.6 MG TAB PO ONE (09:45)
[2016-07-31] MEDS ORDERED: MAGNESIUM CITRATE SOLN 300 ML BTL PO ONE (09:45)
--- NOTE | 2016-07-31 23:40 | HHI.PR ---
Subjective Remarks patient seen today around 11am. Patient says she is feeling well. Denies any pain. Continued weakness. Minimal change. No bowel movement Laxatives ordered.tooth pain improved. Objective Vital Signs Date Time Temp Pulse Resp B/P Pulse Ox O2 Delivery O2 Flow Rate FiO2 07/31/16 08:50 69 07/31/16 08:00 97.5 67 16 126/73 98 07/31/16 07:11 18 07/31/16 04:00 97.4 67 22 168/80 96 07/31/16 00:00 97.7 73 16 83/ 97 I/O 07/30/16 07/30/16 07/30/16 07/31/16 07/31/16 07/31/16 07:00 15:00 23:00 07:00 15:00 23:00 Intake Total 956 ml 740 ml 1395 ml 841 ml Output Total 1150 ml 300 ml 250 ml Balance -194 ml 440 ml 1395 ml 591 ml Intake Oral 240 ml 740 ml 120 ml IV Total 716 ml 1395 ml 721 ml Output Urine Total 1150 ml 300 ml 250 ml # Bowel Movements 0 0 0 Result Diagram: 07/31/1651907/31/1620 Objective Remarks GENERAL: Patient sitting up on edge of bed.He is alert. Pleasant. SKIN: Warm and dry. HEAD: Normocephalic. Patient does have very poor dentition area and single molar remaining on the left side. Tenderness to palpation improved. no abscess or drainage visualized. EYES: No scleral icterus. No injection or drainage. NECK: Supple, trachea midline. No JVD. CARDIOVASCULAR: Regular rate and rhythm without murmurs, gallops, or rubs. RESPIRATORY: Breath sounds equal bilaterally. No accessory muscle use. GASTROINTESTINAL: Abdomen soft, non-tender, nondistended. MUSCULOSKELETAL: No cyanosis, or edema. BACK: Nontender without obvious deformity. No CVA tenderness. A/P Assessment and Plan 07/31/16 Hypokalemia. resolved without replacement. discharged to inpatient rehabilitation -Will need to see a dentist Will need followup neurology 75-year-old male with PMH of Anxiety, Depression, Prostate CA, HTN and h/o CVA who was brought to the ER by EMS secondary to confusion and gait instability. Per report, pt lives alone, alicia went to check on pt and noted him to be confused w/ difficulty ambulating and concerned for stroke. //TIA: EMS called by patient's alicia for increased confusion and gait instability, concerning for CVA. h/o CVA. No focal neuro deficits. -CT Head w/ old left lacunar infarct, no new findings, images reviewed by me. -Brain MRI with atrophy and white matter disease with remote lacunar infarcts. -Head MRA with atherosclerotic disease, otherwise unremarkable. -U/a with trace leuks, WBCs, urine culture with no growth x24hrs, will hold off on abx -Start ASA 81mg daily, Statin. -Check HgbA1c, lipid panel wnl -neuro checks, NIH Stroke Scale -echo negative for thrombus. -Appreciate neurology assistance. Continue and coagulation. -PT/OT/ST eval, patient needs rehab placement, case management consulted //PAVEL on chronic kidney disease unknown stage, at least stage III: Creatinine 2.12, Max 2.6 during admission.previously 1.59 on 04/23/11. -resolved. With fluids. //HTN: //Grade 1 diastolic dysfunction on echocardiogram HTN-blood pressure elevated in the 180s systolic.. Initially allowing permissive HTN with stroke work up as above. -Hold NATASHA and HCTZ with PAVEL. =1/2 Continue home Coreg 25 mg twice daily. Increase Norvasc to 5 mg daily. //DM: Blood glucose uncontrolled, 301 today. -Monitor Accucheck and cover with Sliding scale insulin. -Check Hgb A1c. -Started Levemir 5u sq bid -1800 diabetic diet //Dental infection. No abscess. continue Augmentin 14 course.Follow-up with dentist within 2 weeks. //DVT Prophylaxis: SCD/Teds. Discharge Planning Echocardiogram negative for thrombus or vegetation. Can discharge to inpatient rehabilitation when cleared by neurology. Bola Loving MD Jul 31, 2016 23:40
--- NOTE | 2016-07-31 23:41 | HHI.DS ---
Discharge Summary Admission Date Jul 28, 2016 at 02:22 Discharge Date: Jul 31, 2016 Admitting Diagnosis AMS, Poss TIA, Prerenal Azotemia (1) TIA (transient ischemic attack) ICD Code: G45.9 (2) PAVEL (acute kidney injury) ICD Code: N17.9 (3) DM (diabetes mellitus) ICD Code: E11.9 (4) HTN (hypertension) ICD Code: I10 Procedures no invasive procedures performed. Brief History - From Admission This is 75-year-old male with PMH of Anxiety, Depression, Prostate CA, HTN and h /o CVA who was brought to the ER by EMS secondary to confusion and gait instability. Per report, pt lives alone, cynthiacori went to check on pt and noted him to be confused w/ difficulty ambulating and concerned for stroke. Pt denies any complaints except for difficulty w/ urination. Denies fever, chills , abdominal pain, nausea or vomiting. Currently oriented to person and place. On arrival, BP 148/72, HR 79, O2 sat 100% on RA, Afebrile. WBC 11.3. Creatinine 2.12, previous and 1.59 on 04/23/11. UA pending. CT Head with old left-sided basal ganglia lacunar infarct, no acute findings. CXR negative for acute findings. S/p IVF in ER. CBC/BMP: 07/31/16 0520 07/31/16 0520 Significant Findings Laboratory Tests Test 07/29/16 07/30/16 07/31/16 05:42 05:01 05:20 Red Blood Count 3.74 MIL/MM3 3.88 MIL/MM3 4.08 MIL/MM3 (4.50-5.90) (4.50-5.90) (4.50-5.90) Hemoglobin 12.3 GM/DL 12.3 GM/DL (13.0-17.0) (13.0-17.0) Hematocrit 33.9 % 35.2 % 37.3 % (39.0-51.0) (39.0-51.0) (39.0-51.0) Mean Corpuscular Hemoglobin 36.1 % Concent (32.0-36.0) Monocytes (%) (Auto) 15.9 % 13.3 % 9.8 % (0.0-8.0) (0.0-8.0) (0.0-8.0) Monocytes # (Auto) 1.2 TH/MM3 1.1 TH/MM3 (0-0.9) (0-0.9) Potassium Level 3.2 MEQ/L 3.4 MEQ/L (3.5-5.1) (3.5-5.1) Blood Urea Nitrogen 42 MG/DL (7-18) 37 MG/DL (7-18) 28 MG/DL (7-18) Creatinine 2.49 MG/DL 1.71 MG/DL 1.40 MG/DL (0.60-1.30) (0.60-1.30) (0.60-1.30) Random Glucose 121 MG/DL 186 MG/DL 160 MG/DL (74-106) (74-106) (74-106) Calcium Level 8.2 MG/DL 7.7 MG/DL 8.1 MG/DL (8.5-10.1) (8.5-10.1) (8.5-10.1) Albumin 3.1 GM/DL (3.4-5.0) Estimat Glomerular Filtration 25 ML/MIN (>89) 39 ML/MIN (>89) 49 ML/MIN (>89) Rate Cholesterol Level 111 MG/DL (120-200) Sodium Level 135 MEQ/L (136-145) Imaging Last Impressions Renal Ultrasound 07/30/16 0000 Signed Impressions: Service Date/Time: Saturday, July 30, 2016 09:41 - CONCLUSION: Normal examination. Braden Griffith MD Head Magnetic Resonance Angiography 07/28/16 0000 Signed Impressions: Service Date/Time: Thursday, July 28, 2016 07:46 - CONCLUSION: Atherosclerotic disease of the posterior cerebral arteries is identified. Otherwise unremarkable. Braden Griffith MD Brain MRI 07/28/16 0000 Signed Impressions: Service Date/Time: Thursday, July 28, 2016 07:46 - CONCLUSION: Atrophy and white matter disease with remote lacunar infarcts. Braden Griffith MD Head CT 07/27/162155 Signed Impressions: Service Date/Time: Wednesday, July 27, 2016 23:00 - CONCLUSION: 1. Cerebral atrophy and chronic ischemic small vessel vasculopathy. 2. A left-sided basal ganglia lacunar infarct. Mahin Lewis MD Chest X-Ray 07/27/162155 Signed Impressions: Service Date/Time: Wednesday, July 27, 2016 22:04 - CONCLUSION: No acute disease. Mahin Lewis MD PE at Discharge GENERAL: Well-nourished, well-developed elderly male patient in NAD. SKIN: Warm and dry. No rash. HEAD: Normocephalic. Atraumatic. ENT: No nasal bleeding or discharge. Mucous membranes pink and moist. NECK: Supple. Trachea midline. CARDIOVASCULAR: Regular rate and rhythm. S1, S2 noted. No murmur appreciated. RESPIRATORY: No accessory muscle use. Clear to auscultation. Breath sounds equal bilaterally. GASTROINTESTINAL: Abdomen soft, non-tender, nondistended. Normoactive bowel sounds x4. MUSCULOSKELETAL: No obvious deformities. Extremities without clubbing, cyanosis , or edema. NEUROLOGICAL: Awake and alert, oriented to self and place only. No obvious cranial nerve deficits. Motor grossly within normal limits. Generalized 4/5 weakness of b/l upper and lower extremities. Normal speech. PSYCHIATRIC: Appropriate mood and affect; insight and judgment limited. Hospital Course Imaging as above Showed old lacunar strokes. Anticoagulation adjusted by neurology. Patient was also found to have dental infection, and was started on Augmentin for 14 days. He will need to see a dentist. Need follow-up with neurology. For problem-based summary from most recent progress note, please see below. 07/31/16 Hypokalemia. resolved without replacement. discharged to inpatient rehabilitation -Will need to see a dentist Will need followup neurology 75-year-old male with PMH of Anxiety, Depression, Prostate CA, HTN and h/o CVA who was brought to the ER by EMS secondary to confusion and gait instability. Per report, pt lives alone, alicia went to check on pt and noted him to be confused w/ difficulty ambulating and concerned for stroke. //TIA: EMS called by patient's alicia for increased confusion and gait instability, concerning for CVA. h/o CVA. No focal neuro deficits. -CT Head w/ old left lacunar infarct, no new findings, images reviewed by me. -Brain MRI with atrophy and white matter disease with remote lacunar infarcts. -Head MRA with atherosclerotic disease, otherwise unremarkable. -U/a with trace leuks, WBCs, urine culture with no growth x24hrs, will hold off on abx -Start ASA 81mg daily, Statin. -Check HgbA1c, lipid panel wnl -neuro checks, NIH Stroke Scale -echo negative for thrombus. -Appreciate neurology assistance. Continue and coagulation. -PT/OT/ST eval, patient needs rehab placement, case management consulted //PAVEL on chronic kidney disease unknown stage, at least stage III: Creatinine 2.12, Max 2.6 during admission.previously 1.59 on 04/23/11. -resolved. With fluids. //HTN: //Grade 1 diastolic dysfunction on echocardiogram HTN-blood pressure elevated in the 180s systolic.. Initially allowing permissive HTN with stroke work up as above. -Hold NATASHA and HCTZ with PAVEL. =1/2 Continue home Coreg 25 mg twice daily. Increase Norvasc to 5 mg daily. //DM: Blood glucose uncontrolled, 301 today. -Monitor Accucheck and cover with Sliding scale insulin. -Check Hgb A1c. -Started Levemir 5u sq bid -1800 diabetic diet //Dental infection. No abscess. continue Augmentin 14 course.Follow-up with dentist within 2 weeks. //DVT Prophylaxis: SCD/Teds. Discharge Planning Echocardiogram negative for thrombus or vegetation. Can discharge to inpatient rehabilitation when cleared by neurology. Pt Condition on Discharge: Good Discharge Disposition: Discharge to SNF Discharge Time: <= 30 minutes Discharge Instructions DIET: Follow Instructions for: Heart Healthy Diet, Diabetic Diet Speech Therapy-Diet Recommends: Regular Activities you can perform: Regular-No Restrictions Follow up Referrals: Neurology - 1 Week with Esperanza Grant MD New Medications: Aspirin (Aspirin) 81 Mg Tabdr 162 MG PO DAILY prevent stroke. Days 30 TAB Amoxicillin-Clavulanate (Amoxicillin-Clavulanate) 875-125 mg Tab 875 MG PO Q12HR dental infection Days 13 TAB Gabapentin (Gabapentin) 100 Mg Cap 100 MG PO Q8H Pain Management Days 30 CAP Insulin Aspart Inj (Novolog Inj) 100 Unit/Ml Inj 1 INJECTION SQ ACHS SLIDING SCALE diabetes Days 30 INJECTION Insulin Detemir Inj (Levemir Inj) 1,000 unit/ 10 ML Vial 5 UNITS SQ Q12HR diabetes Days 30 INJECTION Changed Medications: Amlodipine (Amlodipine) 2.5 Mg Tab 5 MG PO DAILY Blood Pressure Management #30 Ref 0 TAB (Changed from: 2.5 MG) Continued Medications: Carvedilol (Carvedilol) 25 Mg Tab 25 MG PO BID #60 Ref 0 TAB Cholecalciferol (Vitamin D) 400 Unit/Ml Drops 400 UNITS PO DAILY #1 BOTTLE Fluoxetine (Fluoxetine) 20 Mg Cap 60 MG PO DAILY #30 Ref 0 CAP Simvastatin (Simvastatin) 40 Mg Tab 40 MG PO HS Cholesterol Management #30 Ref 0 TAB Discontinued Medications: Aspirin DR (Aspir-81) 81 Mg Tabdr Gabapentin (Gabapentin) 600 Mg Tab 600 MG PO TID #90 Ref 0 TAB Hydrochlorothiazide (Hydrochlorothiazide) 25 Mg Tab 25 MG PO DAILY #30 Ref 0 TAB Insulin Glargine Inj (Lantus Inj) 100 Unit/Ml Inj Insulin Human Regular Inj (Novolin R Inj) 100 Unit/Ml Inj Lisinopril (Lisinopril) 5 Mg Tab 5 MG PO DAILY Blood Pressure Management #30 Ref 0 TAB Melatonin (Bulk) (Melatonin) 1 Pow Pow Sertraline (Zoloft) 100 Mg Tab 100 MG PO DAILY #30 Ref 0 TAB Bola Loving MD Jul 31, 2016 23:41
[2016-08-10] MEDS ORDERED: GETGO ROLLING W1 MI1 (14:27)
[2016-08-14] MEDS ORDERED: MILKSUS PO (12:08)
[2016-08-14] MEDS ORDERED: CHOL400D2 PO (12:08)
[2016-08-14] MEDS ORDERED: FLUO20CA4 PO (12:08)
[2016-08-14] MEDS ORDERED: LEVEMIR SQ (12:08)
[2016-08-14] MEDS ORDERED: SENN1TAB PO (12:08)
[2016-08-14] MEDS ORDERED: ASPI81TA11 PO (12:08)
[2016-08-14] MEDS ORDERED: ACET325T PO (12:08)
[2016-08-14] MEDS ORDERED: AMLO10 PO (12:08)
[2016-08-14] MEDS ORDERED: HYDR-3516 PO (12:08)
[2016-08-14] MEDS ORDERED: CARV12.5 PO (12:08)
[2016-08-14] MEDS ORDERED: PRAV80TA PO (12:08)
== END 2016-07-31 13:44 | DRG 69 ==
LOC: NEPE 21:42 → NEDA 07-28 02:22 → N07B 07-28 03:56
PROVIDERS: ADMIT Internal Medicine; ATTEND Internal Medicine
DX: G45.9 Transient cerebral ischemic attack, unspecified (principal); N17.9 Acute kidney failure, unspecified; E11.22 Type 2 diabetes mellitus with diabetic chronic kidney disease; E11.65 Type 2 diabetes mellitus with hyperglycemia; Z79.4 Long term (current) use of insulin; I12.9 Hypertensive chronic kidney disease with stage 1 through stage 4 chronic kidney disease, or unspecified chronic kidney disease; N18.3 Chronic kidney disease, stage 3 (moderate); Z86.73 Personal history of transient ischemic attack (TIA), and cerebral infarction without residual deficits; Z79.82 Long term (current) use of aspirin; Z85.46 Personal history of malignant neoplasm of prostate; F32.9 Major depressive disorder, single episode, unspecified; F41.9 Anxiety disorder, unspecified; E87.6 Hypokalemia; K08.89 Other specified disorders of teeth and supporting structures; M19.90 Unspecified osteoarthritis, unspecified site; E78.00 Pure hypercholesterolemia, unspecified; R29.6 Repeated falls; R26.89 Other abnormalities of gait and mobility
CPT/HCPCS: 70450; 70544; 70551; 71010; 76775; 80048; 80053; 80061; 80301; 80320; 80329; 81001; 82140; 82550; 82948; 83036; 83605; 84484; 85025; 85610; 85730; 87040; 87086; 93005; 93306; G0479; J1815; J7030; J7050

== ENCOUNTER 2017-07-24 13:42 | Inpatient (IN) | payer MEDICARE, OTHER ==
[~2017-07-24] VITALS: Ht 172.7 cm; Wt 72.7 kg
[~2017-07-24 13:42] MED LIST changes: -1-ME1LIQ OR; +ACET325T PO; +AMLO10 PO; +AMLO2.5T PO; +AMOX875T2 PO; -ASPI325T PO; +ASPI81TA23 PO; +CARV12.5 PO; -CARV6.25 PO; -CENTTAB9 PO; +CHOL400D2 PO; -CINN500C7 PO; -CLON-352 PO; +FLUO20CA4 PO; -FLUO20TA20 PO; +GABA100C4 PO; -GABA300C3 PO; +GETGO ROLLING W1 MI1; -HYDR-2768 PO; +HYDR-3516 PO; -KLOR20TA6 PO; -LANTUSP SQ; +LEVEMIR SQ; -LISI40TA PO; -MELA5CAP2 PO; +MILKSUS PO; +NOVOLOGSS SQ; -NOVORP2 SQ; -OMEGCAP2 OR; +PRAV80TA PO; -PRED10PA PO; +SENN1TAB PO; -SERT100 PO; -SIMV40TA PO
[2017-07-24 13:46] VITALS: BP 113/56; PULSE 58; RESP 24; TEMP 98.4; O2SAT 99
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
[2017-07-24] MEDS ORDERED: SODIUM CHLORID 0.9% 500 ML INJ 500 ML IV ONE (14:45)
[2017-07-24] MEDS ORDERED: SODIUM CHLORIDE 0.9% FLUSH 10 ML FLUSH IVF PRN (14:45)
[2017-07-24] MEDS ORDERED: PRAV80TA2 PO (14:58)
[2017-07-24] MEDS ORDERED: LUBR0.5D2 EACH EYE (14:58)
[2017-07-24] MEDS ORDERED: LISI-519 PO (14:58)
[2017-07-24] MEDS ORDERED: BUSP15TA PO (14:58)
[2017-07-24] MEDS ORDERED: INSU1INJ18 SQ (14:58)
[2017-07-24] MEDS ORDERED: ALBI1INJ SQ (14:58)
[2017-07-24] MEDS ORDERED: MELA1TAB18 PO (14:58)
[2017-07-24] MEDS ORDERED: HYDR25TA5 PO (14:58)
[2017-07-24] MEDS ORDERED: FLUO20CA12 PO (14:58)
--- NOTE | 2017-07-24 15:04 | RADRPT ---
EXAM DATE/TIME: 07/24/2017 14:48 [facility] COMPARISON: No previous studies available for comparison. INDICATIONS : Short of breath and cough for two weeks. MEDICAL HISTORY : None. SURGICAL HISTORY : None. ENCOUNTER: Initial ACUITY: 1 day PAIN SCORE: 0/10 LOCATION: Bilateral chest FINDINGS: PA and lateral views of the chest demonstrate the lungs to be symmetrically aerated without evidence of mass, infiltrate or effusion. The cardiomediastinal contours are unremarkable. Osseous structure s are intact. CONCLUSION: No acute disease. There is no evidence of pneumonia. Yassine Mack MD on July 24, 2017 at 15:02 Board Certified Radiologist. This report was verified electronically.
[2017-07-24 15:26] LABS: AUTOMATED NEUTROPHIL # 8.7 TH/MM3 (1.8-7.7); BASOPHIL # 0.1 TH/MM3 (0-0.2); BASOPHIL % 0.5 % (0.0-2.0); EOSINOPHIL # 0.1 TH/MM3 (0-0.4); HEMATOCRIT 38.2 % (39.0-51.0); HEMOGLOBIN 12.8 GM/DL (13.0-17.0); LYMPH % 13.5 % (9.0-44.0); LYMPHOCYTE # 1.5 TH/MM3 (1.0-4.8); MEAN CELL VOLUME 94.9 FL (80.0-100.0); MEAN CORPUSCULAR HEMOGLOBIN 31.8 PG (27.0-34.0); MEAN CORPUSCULAR HGB CONC 33.5 % (32.0-36.0); MEAN PLATELET VOLUME 8.2 FL (7.0-11.0); MONO % 8.3 % (0.0-8.0); NEUT % 76.7 % (16.0-70.0); PLATELET COUNT 219 TH/MM3 (150-450); RED BLOOD COUNT 4.02 MIL/MM3 (4.50-5.90); RED CELL DISTRIBUTION WIDTH 12.7 % (11.6-17.2); WHITE BLOOD COUNT 11.4 TH/MM3 (4.0-11.0)
[2017-07-24 15:41] LABS: ALBUMIN 3.4 GM/DL (3.4-5.0); ALT (GPT) 122 U/L (12-78); AST (GOT) 82 U/L (15-37); BICARBONATE 26.6 MEQ/L (21.0-32.0); BLOOD UREA NITROGEN 42 MG/DL (7-18); CALCIUM 9.4 MG/DL (8.5-10.1); CHLORIDE 104 MEQ/L (98-107); CREATININE 2.25 MG/DL (0.60-1.30); GLOMERULAR FILTRATION RATE 28 ML/MIN (>89); GLUCOSE,RANDOM 171 MG/DL (74-106); SODIUM (NA) 139 MEQ/L (136-145)
[2017-07-24 15:55] LABS: ALKALINE PHOSPHATASE 65 U/L (45-117); TOTAL BILIRUBIN ADULT 0.8 MG/DL (0.2-1.0)
[2017-07-24 16:18] VITALS: BP 142/69; PULSE 64; RESP 16; O2SAT 98
[2017-07-24] MEDS ORDERED: NALOXONE HCL 0.4 MG/ML AMP IV PUSH PRN (17:30)
[2017-07-24] MEDS ORDERED: SODIUM CHLORIDE 0.9% FLUSH 10 ML FLUSH IV FLUSH PRN (17:30)
--- NOTE | 2017-07-24 20:44 | HHI.HP ---
HPI Service [facility] Primary Care Physician [facility] Admission Diagnosis Dehydration, URI, Acute kidney injury. Diagnoses: Travel History International Travel<30 Days: No Contact w/Intl Traveler <30 Da: No Traveled to Known Affected Are: No History of Present Illness hx from patient, ER MD communication and review of med records has been coughing cant stop when i get the coughing - but is going on for weeks had difficulty breathing with cough no temp today is the first day of sputum carbone and yellow no dizziness or syncope but was generally weak had light fever think maybe he vomited once at home from cough denies urinary symptoms apart from while in hospital no diarrhea usually walks with walker but landlady comes and cook for him today, she saw his breeathing and cough and brought him here fell down about 3 weeks ago Review of Systems Except as stated in HPI: all other systems reviewed are Neg Past Family Social History Past Medical History dm cva BPH had prostatectomy. Was told that it was not cancer after the pathology reports. Past Surgical History prostatectomy appendectomy left eye retinal sx Allergies: Coded Allergies: No Known Allergies (Verified Allergy, Unknown, 07/24/17) Family History mother- cancer- brain father- cancer- some heart issue Social History used to smoke, quit 50yrs ago no drinking etoh, no drugs lives on his own has landlady who checks on him and cooks for him Physical Exam Vital Signs Vital Signs Date Time Temp Pulse Resp B/P (MAP) Pulse Ox O2 Delivery O2 Flow Rate FiO2 07/24/17 18:57 07/24/17 16:18 64 16 142/69 (93) 98 Room Air 07/24/17 13:46 98.4 58 24 113/56 (75) 99 Room Air Physical Exam GENERAL: This is a elderly gentleman, very pleasant, in no apparent distress. Looks chronically weak SKIN: Multiple superficial ecchymoses and skin tears from falls HEAD: Atraumatic. Normocephalic. No temporal or scalp tenderness. EYES: No scleral icterus. No injection or drainage. ENT: Nose without bleeding, purulent drainage or septal hematoma. Airway patent. NECK: Trachea midline. No JVD. Supple, nontender, no meningeal signs. CARDIOVASCULAR: Regular rate and rhythm without murmurs, gallops, or rubs. RESPIRATORY: Clear to auscultation. Breath sounds equal bilaterally. No wheezes , rales, or rhonchi. GASTROINTESTINAL: Abdomen soft, non-tender, nondistended. No guarding. MUSCULOSKELETAL: Extremities without clubbing, cyanosis, or edema.No calf tenderness. NEUROLOGICAL: Awake and alert. Motor and sensory grossly within normal limits. Normal speech. Mild facial asymmetry from prior CVA Laboratory Laboratory Tests Test 07/24/17 14:40 White Blood Count 11.4 Red Blood Count 4.02 Hemoglobin 12.8 Hematocrit 38.2 Mean Corpuscular Volume 94.9 Mean Corpuscular Hemoglobin 31.8 Mean Corpuscular Hemoglobin Concent 33.5 Red Cell Distribution Width 12.7 Platelet Count 219 Mean Platelet Volume 8.2 Neutrophils (%) (Auto) 76.7 Lymphocytes (%) (Auto) 13.5 Monocytes (%) (Auto) 8.3 Eosinophils (%) (Auto) 1.0 Basophils (%) (Auto) 0.5 Neutrophils # (Auto) 8.7 Lymphocytes # (Auto) 1.5 Monocytes # (Auto) 1.0 Eosinophils # (Auto) 0.1 Basophils # (Auto) 0.1 CBC Comment DIFF FINAL Differential Comment Blood Urea Nitrogen 42 Creatinine 2.25 Random Glucose 171 Total Protein 8.0 Albumin 3.4 Calcium Level 9.4 Alkaline Phosphatase 65 Aspartate Amino Transf (AST/SGOT) 82 Alanine Aminotransferase (ALT/SGPT) 122 Total Bilirubin 0.8 Sodium Level 139 Potassium Level 4.1 Chloride Level 104 Carbon Dioxide Level 26.6 Anion Gap 8 Estimat Glomerular Filtration Rate 28 Date/Time Source Procedure Growth Status 07/24/17 15:10 Nasal Washing Influenza Types A,B Antigen (YANIV) - Final NEGATIVE FOR FLU A AND B ANTIGEN.... Complete Result Diagram: 07/24/17 1440 07/24/17 1440 Imaging Last 48 hours Impressions Chest X-Ray 07/24/17 1433 Signed Impressions: Service Date/Time: Saturday, July 24, 2017 14:48 - CONCLUSION: No acute disease. There is no evidence of pneumonia. MD Yina Pulido VTE Risk Assessment Caprini VTE Risk Assessment: Mod/High Risk (score >= 2) Caprini Risk Assessment Model Point Value = 1 Point Value = 2 Point Value = 3 Point Value = 5 Age 41-60 Minor surgery BMI > 25 kg/m2 Swollen legs Varicose veins or History of unexplained or recurrent spontaneous Oral contraceptives or hormone replacement Sepsis (< 1 month) Serious lung disease, including pneumonia (< 1 month) Abnormal pulmonary function Acute myocardial infarction Congestive heart failure (< 1 month) History of inflammatory bowel disease Medical patient at bed rest Age 61-74 Arthroscopic surgery Major open surgery (> 45 min) Laparoscopic surgery (> 45 min) Malignancy Confined to bed (> 72 hours) Immobilizing plaster cast Central venous access Age >= 75 History of VTE Family history of VTE Factor V Leiden Prothrombin [id number] Lupus anticoagulant Anticardiolipin antibodies Elevated serum homocysteine Heparin-induced thrombocytopenia Other congenital or acquired thrombophilia Stroke (< 1 month) Elective arthroplasty Hip, pelvis, or leg fracture Acute spinal cord injury (< 1 month) Prophylaxis Regimen Total Risk Factor Score Risk Level Prophylaxis Regimen 0-1 Low Early ambulation 2 Moderate Order ONE of the following: *Sequential Compression Device (SCD) *Heparin 5000 units SQ BID 3-4 Higher Order ONE of the following medications: *Heparin 5000 units SQ TID *Enoxaparin/Lovenox 40 mg SQ daily (WT < 150 kg, CrCl > 30 mL/min) *Enoxaparin/Lovenox 30 mg SQ daily (WT < 150 kg, CrCl > 10-29 mL/min) *Enoxaparin/Lovenox 30 mg SQ BID (WT < 150 kg, CrCl > 30 mL/min) AND/OR *Sequential Compression Device (SCD) 5 or more Highest Order ONE of the following medications: *Heparin 5000 units SQ TID (Preferred with Epidurals) *Enoxaparin/Lovenox 40 mg SQ daily (WT < 150 kg, CrCl > 30 mL/min) *Enoxaparin/Lovenox 30 mg SQ daily (WT < 150 kg, CrCl > 10-29 mL/min) *Enoxaparin/Lovenox 30 mg SQ BID (WT < 150 kg, CrCl > 30 mL/min) AND *Sequential Compression Device (SCD) Assessment and Plan Assessment and Plan Impression: Acute kidney injury Acute LFT elevation Dehydration Worsening cough or shortness of breath and productive sputum. Possible early pneumonia Generalized weakness/high risk for falls Frequent falls Grade 1 diastolic dysfunction by echo in July 2016 History of diabetes History of CVA History of prostatectomy. Patient states he was told it was not cancer Plan: Start patient on Rocephin and azithromycin. Sputum cultures. Hydrate patient orally. Patient received fluid bolus of 500 cc in the ER. We will repeat lab work in a.m. and follow renal function and liver enzymes function. Avoid nephrotoxic and hepatotoxic medications. Fall precautions. ULTRASOUND OF KIDNEYS/BLADDER/PROSTATE Patient denies any urinary symptoms at home. However while in hospital, it was noted that patient is not able to urinate properly. Likely this is from BPH and pain in hospital. We'll monitor for urinary retention and if needed, obtain bladder scan. BNP in a.m. PT evaluation. Case management consult for possible placement. DVT prophylaxis with heparin. Discussed Condition With patient, ER MD, nursing staff Physician Certification 2 Midnight Certification Type: Admission for Inpatient Services Order for Inpatient Services The services are ordered in accordance with Medicare regulations or non- Medicare payer requirements, as applicable. In the case of services not specified as inpatient-only, they are appropriately provided as inpatient services in accordance with the 2-midnight benchmark. Estimated LOS (days): 2 days is the estimated time the patient will need to remain in the hospital, assuming treatment plan goals are met and no additional complications. Post-Hospital Plan: Not yet determined Melida Pascal MD Jul 24, 2017 20:44
[2017-07-24] MEDS: HEPARIN SODIUM - SQ 10,000 UNITS/ML VIAL SQ SCH (21:13)
[2017-07-24] MEDS: SODIUM CHLORIDE 0.9% FLUSH 10 ML FLUSH IV FLUSH SCH (21:13)
[2017-07-24] MEDS ORDERED: guaiFENesin/CODEINE SYRUP 200 MG/20 MG/10 ML CUP PO PRN (21:15)
[2017-07-24] MEDS ORDERED: DEXTROSE 50% IN WATER 50 ML VIAL(D50) IV PUSH PRN (21:15)
[2017-07-24] MEDS: cefTRIAXone INJ 1,000 MG in SODIUM CHLORIDE 0.9% INJ 100 ML IV SCH (21:15)
[2017-07-24] MEDS ORDERED: GLUCAGON 1 MG/ML VIAL OTHER PRN (21:15)
[2017-07-24] MEDS ORDERED: MELATONIN 5 MG TAB PO PRN (21:30)
[2017-07-24 21:45] VITALS: BP 134/74; PULSE 68; RESP 18; TEMP 98.1; O2SAT 97
[2017-07-24] MEDS ORDERED: AZITHROMYCIN INJ 500 MG in SODIUM CHLOR 0.9% 250 ML INJ 250 ML IV SCH (22:00)
--- NOTE | 2017-07-24 23:16 | RADRPT ---
EXAM DATE/TIME: 07/24/2017 22:24 [facility] COMPARISON: No previous studies available for comparison. INDICATIONS : Right upper quadrant pain and abnormal labs. MEDICAL HISTORY : Hypercholesterolemia. Hypertension. Myocardial infarction. Cerebrovascular accident. Anticoagulant th erapy. Sleep apnea. Renal failure. Kidney stones. Prostate cancer. Arthritis. Diabetes. Depression. P TSD. Measles. Blood transfusion. SURGICAL HISTORY : Prostatectomy. Appendectomy. Tonsillectomy. Shrapnel removal. Right leg suregery. ENCOUNTER: Initial ACUITY: 1 day PAIN SCORE: 0/10 LOCATION: Bilateral upper quadrant MEASUREMENTS: LIVER: 15.0 cm length COMMON DUCT: 5 mm RIGHT KIDNEY: 11.4 x 5.5 x 5.4 cm LEFT KIDNEY: 11.7 x 5.4 x 5.9 cm SPLEEN: 11.7 cm length AORTA: 1.7cm maximal FINDINGS: The liver appears grossly intact for technique. There is sludge and gallstones within the gallbladder without gallbladder wall thickening, or pericholecystic fluid. The visualized pancreas appears margarito sly intact for technique. The spleen, IVC, aorta are unremarkable. No definite solid renal mass or hydeonephrosis is seen. CONCLUSION: Cholelithiasis. Timbo Grider MD on July 24, 2017 at 23:13 Board Certified Radiologist. This report was verified electronically.
[2017-07-25 04:49] VITALS: BP 124/68; PULSE 82; RESP 18; TEMP 98.4; O2SAT 97
[2017-07-25] MEDS: HEPARIN SODIUM - SQ 10,000 UNITS/ML VIAL SQ SCH (05:34)
[2017-07-25 07:09] LABS: AUTOMATED NEUTROPHIL # 6.5 TH/MM3 (1.8-7.7); BASOPHIL # 0.1 TH/MM3 (0-0.2); BASOPHIL % 0.8 % (0.0-2.0); EOSINOPHIL # 0.2 TH/MM3 (0-0.4); EOSINOPHIL % 2.5 % (0.0-4.0); HEMATOCRIT 35.2 % (39.0-51.0); HEMOGLOBIN 12.2 GM/DL (13.0-17.0); LYMPH % 18.6 % (9.0-44.0); LYMPHOCYTE # 1.8 TH/MM3 (1.0-4.8); MEAN CELL VOLUME 94.4 FL (80.0-100.0); MEAN CORPUSCULAR HEMOGLOBIN 32.7 PG (27.0-34.0); MEAN CORPUSCULAR HGB CONC 34.6 % (32.0-36.0); MEAN PLATELET VOLUME 8.2 FL (7.0-11.0); MONO % 8.8 % (0.0-8.0); MONOCYTE # 0.8 TH/MM3 (0-0.9); NEUT % 69.3 % (16.0-70.0); PLATELET COUNT 180 TH/MM3 (150-450); RED BLOOD COUNT 3.73 MIL/MM3 (4.50-5.90); RED CELL DISTRIBUTION WIDTH 12.9 % (11.6-17.2); WHITE BLOOD COUNT 9.4 TH/MM3 (4.0-11.0)
[2017-07-25 07:29] LABS: ALBUMIN 2.9 GM/DL (3.4-5.0); ALKALINE PHOSPHATASE 59 U/L (45-117); ALT (GPT) 119 U/L (12-78); AST (GOT) 73 U/L (15-37); BICARBONATE 23.6 MEQ/L (21.0-32.0); BLOOD UREA NITROGEN 34 MG/DL (7-18); CALCIUM 8.6 MG/DL (8.5-10.1); CHLORIDE 106 MEQ/L (98-107); CREATININE 1.65 MG/DL (0.60-1.30); GLOMERULAR FILTRATION RATE 41 ML/MIN (>89); GLUCOSE,RANDOM 78 MG/DL (74-106); SODIUM (NA) 140 MEQ/L (136-145); TOTAL BILIRUBIN ADULT 0.5 MG/DL (0.2-1.0); TOTAL PROTEIN 6.9 GM/DL (6.4-8.2)
[2017-07-25 07:54] VITALS: PULSE 63
[2017-07-25] MEDS: INSULIN ASPART SUPPLEMENTAL SCALE SQ SCH ×2 (08:00→12:00)
[2017-07-25 08:10] VITALS: BP 143/65; PULSE 64; RESP 18; TEMP 97.9; O2SAT 96
[2017-07-25] MEDS ORDERED: FLUoxetine HCL 20 MG CAP PO SCH (09:00)
[2017-07-25] MEDS ORDERED: busPIRone HCL 10 MG TAB PO SCH (09:00)
[2017-07-25] MEDS ORDERED: CARVEDILOL 12.5 MG TAB PO SCH (09:00)
[2017-07-25] MEDS: SODIUM CHLORIDE 0.9% FLUSH 10 ML FLUSH IV FLUSH SCH (09:28)
[2017-07-25] MEDS: cefTRIAXone INJ 1,000 MG in SODIUM CHLORIDE 0.9% INJ 100 ML IV SCH (09:28)
[2017-07-25] MEDS ORDERED: AZIT250T3 PO (10:48)
[2017-07-25] MEDS ORDERED: BENZ100 PO (10:48)
[2017-07-25] MEDS ORDERED: GUAISYP5 PO (10:48)
[2017-07-25] MEDS ORDERED: FLUT1SPR5 EACH NARE (10:48)
--- NOTE | 2017-07-25 10:52 | HHI.DCPOC ---
Discharge Care Plan Diagnosis: (1) Elevated LFTs (2) Chronic cough Additional Problems You will need to see your primary care provider in regards to your elevated liver enzymes. It may be due to pravastatin use but your provider will need to work this up. Goals to Promote Your Health * To prevent worsening of your condition and complications * To maintain your health at the optimal level Directions to Meet Your Goals Take your medications as prescribed Follow your dietary instruction Follow activity as directed Keep your appointments as scheduled Take your immunizations and boosters as scheduled If your symptoms worsen call your PCP, if no PCP go to Urgent Care Center or Emergency Room Smoking is Dangerous to Your Health. Avoid second hand smoke Call the 24-hour hour crisis hotline for domestic abuse at Radha Hester MD Jul 25, 2017 10:52
--- NOTE | 2017-07-25 10:52 | HHI.DS ---
Discharge Summary Admission Date Jul 24, 2017 at 20:26 Discharge Date: Jul 25, 2017 Admitting Diagnosis Dehydration, URI, Acute kidney injury. (1) Acute on chronic kidney failure ICD Code: N17.9 - Acute kidney failure, unspecified; N18.9 - Chronic kidney disease, unspecified Diagnosis: Principal (2) Elevated LFTs ICD Code: R79.89 - Other specified abnormal findings of blood chemistry Diagnosis: Secondary (3) Chronic cough ICD Code: R05 - Cough Diagnosis: Principal Procedures See hospital course. Brief History - From Admission hx from patient, ER MD communication and review of med records has been coughing cant stop when i get the coughing - but is going on for weeks had difficulty breathing with cough no temp today is the first day of sputum carbone and yellow no dizziness or syncope but was generally weak had light fever think maybe he vomited once at home from cough denies urinary symptoms apart from while in hospital no diarrhea usually walks with walker but alicia comes and cook for him today, she saw his breeathing and cough and brought him here fell down about 3 weeks ago CBC/BMP: 07/25/17 0605 07/25/17 0605 Significant Findings Laboratory Tests Test 07/24/17 14:40 07/25/17 06:05 White Blood Count 11.4 TH/MM3 (4.0-11.0) Red Blood Count 4.02 MIL/MM3 (4.50-5.90) 3.73 MIL/MM3 (4.50-5.90) Hemoglobin 12.8 GM/DL (13.0-17.0) 12.2 GM/DL (13.0-17.0) Hematocrit 38.2 % (39.0-51.0) 35.2 % (39.0-51.0) Neutrophils (%) (Auto) 76.7 % (16.0-70.0) Monocytes (%) (Auto) 8.3 % (0.0-8.0) 8.8 % (0.0-8.0) Neutrophils # (Auto) 8.7 TH/MM3 (1.8-7.7) Monocytes # (Auto) 1.0 TH/MM3 (0-0.9) Blood Urea Nitrogen 42 MG/DL (7-18) 34 MG/DL (7-18) Creatinine 2.25 MG/DL (0.60-1.30) 1.65 MG/DL (0.60-1.30) Random Glucose 171 MG/DL (74-106) Aspartate Amino Transf (AST/SGOT) 82 U/L (15-37) 73 U/L (15-37) Alanine Aminotransferase (ALT/SGPT) 122 U/L (12-78) 119 U/L (12-78) Estimat Glomerular Filtration Rate 28 ML/MIN (>89) 41 ML/MIN (>89) Albumin 2.9 GM/DL (3.4-5.0) Imaging Last Impressions Chest X-Ray 07/24/17 1433 Signed Impressions: Service Date/Time: Monday, July 24, 2017 14:48 - CONCLUSION: No acute disease. There is no evidence of pneumonia. Yassine Mack MD Abdomen Ultrasound 07/24/17 0000 Signed Impressions: Service Date/Time: Monday, July 24, 2017 22:24 - CONCLUSION: Cholelithiasis. K. Juan Grider MD PE at Discharge GENERAL: in NAD not on any oxygen and normal RR CARDIOVASCULAR: Regular rate and rhythm without murmurs, gallops, or rubs. RESPIRATORY: Breath sounds equal bilaterally. No accessory muscle use. GASTROINTESTINAL: Abdomen soft, non-tender, nondistended. MUSCULOSKELETAL: No cyanosis, or edema. Pt update on day of discharge Follow-up for chronic cough Patient stated cough has improved. Denied any sputum production. Patient also asking to eat breakfast. He denies any shortness of breathing. He has no complaints. Patient maintains afebrile. Discussed case with patient's nurse. Hospital Course This is a 76 year old male who is admitted due to her chronic cough and a possible acute on chronic renal insufficiency. Patient baseline reviewed and he fluctuates in which he wasn't too far from base line. he was given IV fluids with improvement in his creatinine. Patient had good urine output. She had a chest x-ray which was negative. He has had a BNP which was 80. Clinically patient lungs were clear did not require any oxygen. Most likely chronic cough could be post viral versus postnasal dripping versus atypical pneumonia. Patient was stable on discharge and was discharged on azithromycin, Mucinex, and Flonase. During his hospital course he did have mildly elevated LFTs was most likely secondary to statin use for his questionable history of TIA. Abdominal ultrasound was done which showed cholelithiasis. LFTs were not 3 times the upper limit of normal so they were continued. Patient will need to follow with his primary care physician in regards to further evaluation of his LFTs. They remained stable during his hospitalization. Pt Condition on Discharge: Good Discharge Disposition: Discharge Home Discharge Time: > 30 minutes Discharge Instructions DIET: Follow Instructions for: Heart Healthy Diet, Diabetic Diet Activities you can perform: Weight Bearing as Liz Follow up Referrals: PCP Follow-up - 1 Week New Medications: Azithromycin (Azithromycin) 250 Mg Tab 250 MG PO DAILY for Infection, #4 TAB 0 Refills start first dose tomorrow Benzonatate (Tessalon Perles) 100 Mg Cap 100 MG PO TID PRN for COUGH, #20 CAP 0 Refills Fluticasone Nasal Sunset (Flonase Nasal Sunset) 50 Mcg/Act Sunset 50 MCG EACH NARE BID for Allergies, #1 BOTTLE 0 Refills Guaifenesin-Codeine Liq (Guaiatussin AC Liq) 100-10 Mg/5 Ml Syrp 10 ML PO Q6H PRN for cough, #100 ML 0 Refills Continued Medications: Albiglutide 4-Pack Inj (Tanzeum 4-Pack Inj) 30 Mg Pfpen 30 MG SQ Q7D, #4 PEN Amlodipine (Norvasc) 10 Mg Tab 10 MG PO DAILY for 10 Days, TAB Aspirin DR (Aspirin EC) 81 Mg Tabdr 162 MG PO DAILY for 10 Days, TAB Buspirone (Buspirone) 15 Mg Tab 30 MG PO BID for Anxiety, TAB 0 Refills Carboxymethylcellulose Sodium Opth Drops (Lubricant Opth Drops) 0.5% Drops 1 DROP EACH EYE QID for Dry Eye, #1 BOTTLE 0 Refills Carvedilol (Coreg) 12.5 Mg Tab 25 MG PO BID for 10 Days, TAB Cholecalciferol (Vitamin D) 400 Unit/Ml Drops 400 UNITS PO DAILY for 10 Days Fluoxetine (Fluoxetine) 20 Mg Capsule 80 MG PO DAILY, #30 CAP 0 Refills Gabapentin (Gabapentin) 100 Mg Cap 100 MG PO Q8H for Pain Management for 30 Days, CAP Hydrochlorothiazide (Hydrochlorothiazide) 25 Mg Tab 25 MG PO DAILY, #30 TAB 0 Refills Hydrocodone-Acetaminophen (Hydrocodone-Acetaminophen) 5-325 mg Tab 1 TAB PO Q6H PRN for pain 6-10, #10 TAB Insulin Aspart Inj (Novolog Inj) 100 Unit/Ml Inj 1 INJECTION SQ ACHS SLIDING SCALE for diabetes for 30 Days, INJECTION Insulin Detemir Inj (Levemir Inj) 1,000 unit/ 10 ML Vial 5 UNITS SQ Q12HR for 10 Days, INJECTION Insulin Glargine (Basaglar Kwikpen) 100 Unit/Ml Pen 10 UNITS SQ DAILY for Blood Sugar Management, #5 PEN 0 Refills Magnesium Hydroxide Liq (Milk of Magnesia Liq) 400 Mg/5 Ml Susp 30 ML PO DAILY PRN for CONSTIPATION for 10 Days Melatonin (Melatonin) 10 Mg-1 Mg Tab 30 MG PO HS PRN for SLEEP, TAB 0 Refills Pravastatin (Pravastatin) 80 Mg Tab 80 MG PO DAILY for Cholesterol Management, #30 TAB 0 Refills Sennosides-Docusate Sodium (Senna Plus 8.6-50 mg) 1 Tab Tab 1 TAB PO HS for 10 Days, TAB Discontinued Medications: Amoxicillin-Clavulanate (Amoxicillin-Clavulanate) 875-125 mg Tab 875 MG PO Q12HR for dental infection for 13 Days, TAB Lisinopril (Lisinopril) 5 Mg Tab 2.5 MG PO DAILY for Blood Pressure Management, #30 TAB 0 Refills Pravastatin (Pravachol) 80 Mg Tab 80 MG PO HS for 10 Days, TAB Radha Hester MD Jul 25, 2017 10:52
[2017-07-25 11:49] VITALS: BP 147/76; PULSE 80; RESP 18; TEMP 98.4; O2SAT 100
--- NOTE | 2017-07-25 13:04 | HHI.FF ---
Face to Face Verification Diagnosis: (1) Elevated LFTs (2) Chronic cough (3) Acute on chronic kidney failure (4) URI (upper respiratory infection) (5) Transient ischemic attack (TIA) (6) Diabetic nephropathy Physical Therapy Order: Evaluate and Treat, Improve ambulation, Strength and gait training Home Health Nursing Order: Medical education Signs/symptoms of disease process Diabetic education Medication education-adverse effect I have seen patient Michael Marsh on 07/25/17. My clinical findings support the need for the requested home health care services because: Ltd mobility - disease progression Deconditioned w/ increased weakness High risk of falls I certify that my clinical findings support that this patient is homebound because: Unsteady gait/balance Radha Hester MD Jul 25, 2017 13:03
== END 2017-07-25 14:15 | disposition home or self-care (01) | DRG 683 ==
LOC: NEPE 13:42 → INTOOBSV 17:16 → NEDA 17:16 → NEPGCP 18:39 → OBSVTOIN 20:26
PROVIDERS: ADMIT Family Medicine; ATTEND Family Medicine
DX: N17.9 Acute kidney failure, unspecified (principal); I69.354 Hemiplegia and hemiparesis following cerebral infarction affecting left non-dominant side; E11.22 Type 2 diabetes mellitus with diabetic chronic kidney disease; E86.0 Dehydration; I12.9 Hypertensive chronic kidney disease with stage 1 through stage 4 chronic kidney disease, or unspecified chronic kidney disease; J06.9 Acute upper respiratory infection, unspecified; N18.9 Chronic kidney disease, unspecified; E78.00 Pure hypercholesterolemia, unspecified; I25.2 Old myocardial infarction; R74.0 Nonspecific elevation of levels of transaminase and lactic acid dehydrogenase [LDH]; N40.0 Benign prostatic hyperplasia without lower urinary tract symptoms; M19.90 Unspecified osteoarthritis, unspecified site; F32.9 Major depressive disorder, single episode, unspecified; F41.9 Anxiety disorder, unspecified; Z79.4 Long term (current) use of insulin; Z87.891 Personal history of nicotine dependence
CPT/HCPCS: 71020; 76700; 80053; 82948; 83880; 85025; 87804; 96360; J0456; J0696; J1644; J7040; J7050

== ENCOUNTER 2017-10-08 10:29 | Inpatient (IN) | payer MEDICARE, OTHER ==
[~2017-10-08] VITALS: Ht 167.6 cm; Wt 66.0 kg
[~2017-10-08 10:29] MED LIST changes: -ACET325T PO; +ALBI1INJ SQ; -AMLO2.5T PO; -AMOX875T2 PO; +AZIT250T3 PO; +BENZ100 PO; +BUSP15TA PO; +FLUO20CA12 PO; -FLUO20CA4 PO; +FLUT1SPR5 EACH NARE; +GUAISYP5 PO; +HYDR25TA5 PO; +INSU1INJ18 SQ; +LUBR0.5D2 EACH EYE; +MELA1TAB18 PO; -PRAV80TA PO; +PRAV80TA2 PO
[2017-10-08 10:45] VITALS: BP 174/77; PULSE 68; RESP 18; TEMP 98.2; O2SAT 98
[2017-10-08 10:55] VITALS: BP 174/77; PULSE 68; RESP 18; TEMP 98.2; O2SAT 98
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
--- NOTE | 2017-10-08 11:37 | RADRPT ---
EXAM DATE/TIME: 10/08/2017 11:26 [facility] COMPARISON: CT BRAIN W/O CONTRAST, July 27, 2016, 23:00. INDICATIONS : Fell today and hit head. RADIATION DOSE: 66.34 CTDIvol (mGy) MEDICAL HISTORY : Cerebrovascular disease. Hypertension. Carcinoma, prostate.diabetes SURGICAL HISTORY : Tonsillectomy. ENCOUNTER: Initial ACUITY: 1 day PAIN SCALE: 3/10 LOCATION: cranial TECHNIQUE: Multiple contiguous axial images were obtained of the head. Using automated exposure control and adj ustment of the mA and/or kV according to patient size, radiation dose was kept as low as reasonably a chievable to obtain optimal diagnostic quality images. DICOM format image data is available electro nically for review and comparison. FINDINGS: CEREBRUM: Moderate diffuse renal atrophy. Moderate periventricular white matter hypodensity is similar to prior exam. The ventricles are normal for degree of atrophy. Stable small left basal ganglia lacunar infa rct. No evidence of midline shift, mass lesion, hemorrhage or acute infarction. No extra-axial fluid collections are seen. POSTERIOR FOSSA: The cerebellum and brainstem are intact. The 4th ventricle is midline. The cerebellopontine angle i s unremarkable. EXTRACRANIAL: The visualized portion of the orbits is intact. SKULL: The calvaria is intact. No evidence of skull fracture. CONCLUSION: 1. Stable senescent changes and moderate periventricular ischemic small vessel white matter demyelina tion. 2. No acute intracranial abnormality. Hernesto Wheatley MD on October 08, 2017 at 11:33 Board Certified Radiologist. This report was verified electronically.
--- NOTE | 2017-10-08 11:54 | RADRPT ---
EXAM DATE/TIME: 10/08/2017 11:26 [facility] COMPARISON: None. INDICATIONS : <<Fell today and hit head, neck pain.>> RADIATION DOSE: <<32.90>> CTDIvol (mGy) MEDICAL HISTORY : Cerebrovascular disease. Hypertension. Carcinoma, prostate.diabetes SURGICAL HISTORY : Tonsillectomy. ENCOUNTER: Initial ACUITY: 1 day PAIN SCALE: 3/10 LOCATION: Bilateral cranial TECHNIQUE: Volumetric scanning of the cervical spine was performed. Multiplanar reconstructions in the sagittal, coronal and oblique axial planes were performed. Using automated exposure control and adjustment o f the mA and/or kV according to patient size, radiation dose was kept as low as reasonably achievable to obtain optimal diagnostic quality images. DICOM format image data is available electronically f or review and comparison. FINDINGS: VERTEBRAE: Normal vertebral body height. ALIGNMENT: No evidence of subluxation. C2-C3: The bony spinal canal is normal in size. No evidence of disc bulge or herniation. The neural forami na are bilaterally patent. C3-C4: The bony spinal canal is normal in size. No evidence of disc bulge or herniation. The neural forami na are bilaterally patent. C4-C5: The bony spinal canal is normal in size. No evidence of disc bulge or herniation. The neural forami na are bilaterally patent. C5-C6: Left paracentral disc protrusion likely effacing thecal sac. C6-C7: Osteophytic ridging with mild left lateral recess stenosis. C7-T1: The bony spinal canal is normal in size. No evidence of disc bulge or herniation. The neural forami na are bilaterally patent. CONCLUSION: 1. No acute fracture. Probable disc protrusion at C5-6. Left lateral recess stenosis at C6-7 likely f rom degenerative change. Joe Slade MD on October 08, 2017 at 11:48 Board Certified Radiologist. This report was verified electronically.
--- NOTE | 2017-10-08 12:09 | RADRPT ---
EXAM DATE/TIME: 10/08/2017 11:57 [facility] COMPARISON: CHEST SINGLE AP, July 27, 2016, 22:04. INDICATIONS : Chest pain and shortness of breath after fall. MEDICAL HISTORY : Cerebrovascular disease. Hypertension. Carcinoma, prostate. Diabetes SURGICAL HISTORY : Tonsillectomy. ENCOUNTER: Initial ACUITY: 1 day PAIN SCORE: 2/10 LOCATION: Bilateral chest FINDINGS: A single view of the chest demonstrates the lungs to be symmetrically aerated without evidence of mas s, infiltrate or effusion. The cardiomediastinal contours are unremarkable. Osseous structures are intact. CONCLUSION: No acute disease. Mahin Lewis MD on October 08, 2017 at 12:07 Board Certified Radiologist. This report was verified electronically.
--- NOTE | 2017-10-08 12:13 | RADRPT ---
EXAM DATE/TIME: 10/08/2017 11:49 [facility] COMPARISON: CHEST PA & LAT, July 24, 2017, 14:48. INDICATIONS : Lower back pain after fall today. MEDICAL HISTORY : Cerebrovascular disease. Hypertension. Carcinoma, prostate. Diabetes SURGICAL HISTORY : Tonsillectomy. ENCOUNTER: Initial ACUITY: 1 day PAIN SCORE: 6/10 LOCATION: Bilateral lumbar spine. FINDINGS: There are 5 lumbar-type [id number] vertebral bodies. There are degenerated disc at L1/2, L3/4 an d L4/5. There is facet arthritis at L3/4, L4/5 and L5/S1. No definite acute fracture is seen. No dest ructive lesion is identified. CONCLUSION: 1. Degenerative changes within the lumbar spine as above. No definite fracture identified. Daron Rodriguez MD on October 08, 2017 at 12:10 Board Certified Radiologist. This report was verified electronically.
--- NOTE | 2017-10-08 12:32 | RADRPT ---
EXAM DATE/TIME: 10/08/2017 11:48 [facility] COMPARISON: No previous studies available for comparison. INDICATIONS : Pelvis pain post fall. MEDICAL HISTORY : Cerebrovascular disease. Hypertension. Carcinoma, prostate. Diabetes SURGICAL HISTORY : Tonsillectomy. ENCOUNTER: Initial ACUITY: 1 day PAIN SCORE: 5/10 LOCATION: Bilateral pelvis FINDINGS: A single frontal view of the pelvis demonstrates no evidence of fracture. Scattered mild degenerative changes. Osteitis pubis. Clips in the pelvis. The bony pelvic ring is intact. Bony mineralization i s normal. The soft tissues are intact. CONCLUSION: No acute fracture. Mahin Lewis MD on October 08, 2017 at 12:30 Board Certified Radiologist. This report was verified electronically.
[2017-10-08 12:44] LABS: AUTOMATED NEUTROPHIL # 12.5 TH/MM3 (1.8-7.7); BASOPHIL # 0.1 TH/MM3 (0-0.2); BASOPHIL % 0.4 % (0.0-2.0); EOSINOPHIL # 0.1 TH/MM3 (0-0.4); EOSINOPHIL % 0.3 % (0.0-4.0); HEMATOCRIT 37.3 % (39.0-51.0); HEMOGLOBIN 13.1 GM/DL (13.0-17.0); LYMPH % 9.3 % (9.0-44.0); LYMPHOCYTE # 1.4 TH/MM3 (1.0-4.8); MEAN CELL VOLUME 94.4 FL (80.0-100.0); MEAN CORPUSCULAR HEMOGLOBIN 33.2 PG (27.0-34.0); MEAN CORPUSCULAR HGB CONC 35.2 % (32.0-36.0); MEAN PLATELET VOLUME 7.2 FL (7.0-11.0); MONO % 6.4 % (0.0-8.0); NEUT % 83.6 % (16.0-70.0); PLATELET COUNT 221 TH/MM3 (150-450); RED BLOOD COUNT 3.95 MIL/MM3 (4.50-5.90); RED CELL DISTRIBUTION WIDTH 13.6 % (11.6-17.2)
[2017-10-08 12:50] LABS: BILIRUBIN, URINE NEG (NEG); BLOOD, URINE SMALL (NEG); GLUCOSE,URINE 70 mg/dL (NEG); HYALINE CAST, URINE 1 /lpf (RARE); KETONE, URINE TRACE mg/dL (NEG); MUCUS URINE FEW /lpf (OCC); NITRITE,URINE NEG (NEG); URINE COLOR YELLOW (YELLW/STRAW); URINE LEUKOCYTE ESTERASE NEG (NEG)
[2017-10-08 13:08] LABS: BICARBONATE 26.6 MEQ/L (21.0-32.0); CALCIUM 9.1 MG/DL (8.5-10.1); CREATININE 1.48 MG/DL (0.60-1.30)
[2017-10-08] MEDS ORDERED: BISACODYL 10 MG SUPP RECTAL PRN (16:15)
[2017-10-08] MEDS ORDERED: oxyCODONE/ACETAMINOPHEN 5 MG/325 MG TAB PO PRN (16:15)
[2017-10-08] MEDS ORDERED: SENNOSIDES 8.6 MG TAB PO PRN (16:15)
[2017-10-08] MEDS ORDERED: ACETAMINOPHEN 325 MG TAB PO PRN ×2 (16:15)
[2017-10-08] MEDS ORDERED: SODIUM CHLORIDE 0.9% FLUSH 10 ML FLUSH IV FLUSH PRN (16:15)
[2017-10-08] MEDS ORDERED: oxyCODONE/ACETAMINOPHEN 10 MG/325 MG TAB PO PRN (16:15)
[2017-10-08] MEDS ORDERED: METOCLOPRAMIDE HCL 10 MG/2 ML VIAL IV PUSH PRN (16:15)
[2017-10-08] MEDS ORDERED: MAGNESIUM HYDROXIDE SUSP 30 ML CUP PO PRN (16:15)
[2017-10-08] MEDS ORDERED: NALOXONE HCL 0.4 MG/ML AMP IV PUSH PRN (16:15)
[2017-10-08] MEDS ORDERED: ONDANSETRON HCL 4 MG/2 ML VIAL IVP PRN (16:15)
[2017-10-08] MEDS ORDERED: LACTULOSE SYRUP 20 GM/30 ML CUP PO PRN (16:15)
[2017-10-08] MEDS ORDERED: MORPHINE SULFATE 2 MG/ML INJ IV PUSH PRN ×4 (16:15)
[2017-10-08] MEDS ORDERED: cloNIDine HCL 0.1 MG TAB PO PRN (16:30)
[2017-10-08] MEDS ORDERED: DEXTROSE 50% IN WATER 50 ML VIAL(D50) IV PUSH PRN (16:30)
[2017-10-08] MEDS ORDERED: GLUCAGON 1 MG/ML VIAL OTHER PRN (16:30)
[2017-10-08] MEDS ORDERED: MELATONIN 5 MG TAB PO PRN (16:30)
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
[2017-10-08 16:41] VITALS: BP 149/72; PULSE 71; RESP 17; O2SAT 96
[2017-10-08] MEDS: INSULIN ASPART SUPPLEMENTAL SCALE SQ SCH ×2 (17:00→21:00)
[2017-10-08] MEDS: GABAPENTIN 100 MG CAP PO SCH ×3 (17:26→23:36)
[2017-10-08] MEDS: ENOXAPARIN SODIUM 30 MG/0.3 ML SYRINGE SQ SCH (17:27)
[2017-10-08] MEDS: SODIUM CHLOR 0.9% 1000 ML INJ 1,000 ML IV SCH (17:27)
[2017-10-08 17:34] LABS: TROPONIN I LESS THAN 0.02 NG/ML (0.02-0.05)
[2017-10-08 18:20] VITALS: BP 149/72
[2017-10-08 20:00] VITALS: BP 144/67; PULSE 70; RESP 20; TEMP 98; O2SAT 95; O2SAT 97
[2017-10-08] MEDS: FLUTICASONE PROPIONATE 50 MCG/ACT 16 GM NASAL SPRAY EACH NARE SCH (21:00)
[2017-10-08] MEDS: DOCUSATE SODIUM 50 MG/SENNA 8.6 MG TAB PO SCH ×2 (21:00→23:35)
[2017-10-08] MEDS: CARBOXYMETHYLCELL SOD 0.5% OPTH SOLN 15 ML BTL EACH EYE SCH (21:00)
[2017-10-08] MEDS: busPIRone HCL 10 MG TAB PO SCH ×2 (21:00→23:35)
[2017-10-08] MEDS: SODIUM CHLORIDE 0.9% FLUSH 10 ML FLUSH IV FLUSH SCH (21:00)
[2017-10-09] VITALS (12 sets, daily range): BP systolic 107–155; BP diastolic 55–79; PULSE 60–67; RESP 17–20; TEMP 95.6–98.6; O2SAT 95–99
[2017-10-09 01:47] LABS: ALBUMIN 2.9 GM/DL (3.4-5.0); ALKALINE PHOSPHATASE 70 U/L (45-117); ALT (GPT) 52 U/L (12-78); AST (GOT) 37 U/L (15-37); BICARBONATE 27.2 MEQ/L (21.0-32.0); BLOOD UREA NITROGEN 30 MG/DL (7-18); CALCIUM 8.3 MG/DL (8.5-10.1); CHLORIDE 103 MEQ/L (98-107); CREATININE 1.61 MG/DL (0.60-1.30); FREE T4 1.12 NG/DL (0.76-1.46); GLOMERULAR FILTRATION RATE 42 ML/MIN (>89); GLUCOSE,RANDOM 158 MG/DL (74-106); MAGNESIUM 1.7 MG/DL (1.5-2.5); PHOSPHORUS 2.8 MG/DL (2.5-4.9); SODIUM (NA) 138 MEQ/L (136-145); TOTAL BILIRUBIN ADULT 0.6 MG/DL (0.2-1.0); TOTAL PROTEIN 6.4 GM/DL (6.4-8.2); TROPONIN I LESS THAN 0.02 NG/ML (0.02-0.05)
[2017-10-09] MEDS: SODIUM CHLOR 0.9% 1000 ML INJ 1,000 ML IV SCH ×2 (03:38→13:01)
[2017-10-09 05:43] LABS: AUTOMATED NEUTROPHIL # 7.8 TH/MM3 (1.8-7.7); BASOPHIL # 0.1 TH/MM3 (0-0.2); BASOPHIL % 0.5 % (0.0-2.0); EOSINOPHIL # 0.2 TH/MM3 (0-0.4); EOSINOPHIL % 1.6 % (0.0-4.0); HEMATOCRIT 34.2 % (39.0-51.0); HEMOGLOBIN 11.8 GM/DL (13.0-17.0); LYMPH % 17.9 % (9.0-44.0); MEAN CELL VOLUME 93.6 FL (80.0-100.0); MEAN CORPUSCULAR HEMOGLOBIN 32.4 PG (27.0-34.0); MEAN CORPUSCULAR HGB CONC 34.6 % (32.0-36.0); MEAN PLATELET VOLUME 7.1 FL (7.0-11.0); MONO % 9.6 % (0.0-8.0); MONOCYTE # 1.1 TH/MM3 (0-0.9); NEUT % 70.4 % (16.0-70.0); PLATELET COUNT 205 TH/MM3 (150-450); RED BLOOD COUNT 3.66 MIL/MM3 (4.50-5.90); RED CELL DISTRIBUTION WIDTH 13.3 % (11.6-17.2); WHITE BLOOD COUNT 11.1 TH/MM3 (4.0-11.0)
[2017-10-09] MEDS: GABAPENTIN 100 MG CAP PO SCH ×2 (06:00→17:31)
[2017-10-09] MEDS: INSULIN ASPART SUPPLEMENTAL SCALE SQ SCH ×4 (08:00→21:00)
[2017-10-09] MEDS: SODIUM CHLORIDE 0.9% FLUSH 10 ML FLUSH IV FLUSH SCH (09:00)
--- NOTE | 2017-10-09 09:23 | HHI.PR ---
Subjective Remarks Patient is a 77-year-old gentleman. Who was noted to have a fall at home. Supposedly he is able to use a walker but has not been able to do that. Patient states that he fell backward and states he hit the back of his head. He does complain of headache and some neck discomfort. He does not remember the fall or what caused it. Has some degree of dementia. Is covered in urine. His depends are soaked. Disclosure soaked in urine or dressing on the left arm from the skin tear soaked in urine he states that his landlady checks on him on occasion Patient is not a safe discharge. Needs aggressive physical therapy and occupational therapy. More than likely will need retirement facility placement due to inability to ambulate and inability to take care of himself and failure to thrive 3 discussed with RN and patient Still not very mobile Continue physical therapy and occupational therapy Case management consult for discharge planning for SNF Replace potassium and magnesium Objective Vitals Vital Signs Date Time Temp Pulse Resp B/P (MAP) Pulse Ox O2 Delivery O2 Flow Rate FiO2 10/09/17 08:17 95 21 10/09/17 08:00 96.3 65 17 140/67 (91) 98 10/09/17 04:30 67 10/09/17 04:00 98.6 66 20 127/63 (84) 98 10/09/17 00:00 97.9 66 20 107/55 (72) 95 10/08/17 20:00 98.0 70 20 144/67 (92) 97 10/08/17 20:00 95 10/08/17 18:20 149/72 (97) 10/08/17 16:41 71 17 149/72 (97) 96 Room Air 10/08/17 10:55 98.2 68 18 174/77 (109) 98 Room Air 10/08/17 10:55 68 18 98 Room Air 10/08/17 10:45 98.2 68 18 174/77 (109) 98 I/O 10/08/17 10/08/17 10/08/17 10/09/17 10/09/17 10/09/17 07:00 15:00 23:00 07:00 15:00 23:00 Intake Total 350 ml Output Total 200 ml Balance 150 ml Intake Oral 350 ml Output Urine Total 200 ml # Voids 1 # Bowel Movements 0 Result Diagram: 10/09/17 0437 10/09/17 0040 Other Results Laboratory Tests Test 10/08/17 12:15 10/08/17 16:30 10/09/17 00:40 10/09/17 04:37 White Blood Count 15.0 TH/MM3 11.1 TH/MM3 Red Blood Count 3.95 MIL/MM3 3.66 MIL/MM3 Hemoglobin 13.1 GM/DL 11.8 GM/DL Hematocrit 37.3 % 34.2 % Mean Corpuscular Volume 94.4 FL 93.6 FL Mean Corpuscular Hemoglobin 33.2 PG 32.4 PG Mean Corpuscular Hemoglobin Concent 35.2 % 34.6 % Red Cell Distribution Width 13.6 % 13.3 % Platelet Count 221 TH/MM3 205 TH/MM3 Mean Platelet Volume 7.2 FL 7.1 FL Neutrophils (%) (Auto) 83.6 % 70.4 % Lymphocytes (%) (Auto) 9.3 % 17.9 % Monocytes (%) (Auto) 6.4 % 9.6 % Eosinophils (%) (Auto) 0.3 % 1.6 % Basophils (%) (Auto) 0.4 % 0.5 % Neutrophils # (Auto) 12.5 TH/MM3 7.8 TH/MM3 Lymphocytes # (Auto) 1.4 TH/MM3 2.0 TH/MM3 Monocytes # (Auto) 1.0 TH/MM3 1.1 TH/MM3 Eosinophils # (Auto) 0.1 TH/MM3 0.2 TH/MM3 Basophils # (Auto) 0.1 TH/MM3 0.1 TH/MM3 CBC Comment DIFF FINAL DIFF FINAL Differential Comment Urine Color YELLOW Urine Turbidity CLEAR Urine pH 6.0 Urine Specific [place] 1.018 Urine Protein 100 mg/dL Urine Glucose (UA) 70 mg/dL Urine Ketones TRACE mg/dL Urine Occult Blood SMALL Urine Nitrite NEG Urine Bilirubin NEG Urine Urobilinogen LESS THAN 2.0 MG/DL Urine Leukocyte Esterase NEG Urine RBC 2 /hpf Urine WBC 1 /hpf Urine Hyaline Casts 1 /lpf Urine Mucus FEW /lpf Microscopic Urinalysis Comment CATH-CULT NOT IND Blood Urea Nitrogen 30 MG/DL 30 MG/DL Creatinine 1.48 MG/DL 1.61 MG/DL Random Glucose 140 MG/DL 158 MG/DL Calcium Level 9.1 MG/DL 8.3 MG/DL Sodium Level 136 MEQ/L 138 MEQ/L Potassium Level 4.3 MEQ/L 3.3 MEQ/L Chloride Level 102 MEQ/L 103 MEQ/L Carbon Dioxide Level 26.6 MEQ/L 27.2 MEQ/L Anion Gap 7 MEQ/L 8 MEQ/L Estimat Glomerular Filtration Rate 46 ML/MIN 42 ML/MIN Total Creatine Kinase 178 U/L 121 U/L Troponin I LESS THAN 0.02 NG/ML LESS THAN 0.02 NG/ML Total Protein 6.4 GM/DL Albumin 2.9 GM/DL Phosphorus Level 2.8 MG/DL Magnesium Level 1.7 MG/DL Alkaline Phosphatase 70 U/L Aspartate Amino Transf (AST/SGOT) 37 U/L Alanine Aminotransferase (ALT/SGPT) 52 U/L Total Bilirubin 0.6 MG/DL Free Thyroxine 1.12 NG/DL Thyroid Stimulating Hormone 3rd Gen 1.270 uIU/ML Imaging Last Impressions Pelvis X-Ray 10/08/17 0000 Signed Impressions: Service Date/Time: Sunday, October 08, 2017 11:48 - CONCLUSION: No acute fracture. Mahin Leiws MD Lumbar Spine X-Ray 10/08/17 0000 Signed Impressions: Service Date/Time: Sunday, October 08, 2017 11:49 - CONCLUSION: 1. Degenerative changes within the lumbar spine as above. No definite fracture identified. Daron Rodriguez MD Head CT 10/08/17 0000 Signed Impressions: Service Date/Time: Sunday, October 08, 2017 11:26 - CONCLUSION: 1. Stable senescent changes and moderate periventricular ischemic small vessel white matter demyelination. 2. No acute intracranial abnormality. Hernesto Wheatley MD Chest X-Ray 10/08/17 0000 Signed Impressions: Service Date/Time: Sunday, October 08, 2017 11:57 - CONCLUSION: No acute disease. Mahin Lewis MD Cervical Spine CT 10/08/17 0000 Signed Impressions: Service Date/Time: Sunday, October 08, 2017 11:26 - CONCLUSION: 1. No acute fracture. Probable disc protrusion at C5-6. Left lateral recess stenosis at C6- 7 likely from degenerative change. Joe Slade MD Objective Remarks GENERAL: Awake alert and oriented 2 appears to be close to stated age SKIN: Warm and dry. HEAD: Atraumatic. Normocephalic. EYES: Pupils equal and round. No scleral icterus. No injection or drainage. Extraocular muscles intact ENT: No nasal bleeding or discharge. Mucous membranes pink and moist. Tongue is midline NECK: Trachea midline. No JVD. Supple S1-S2 no S3 or S4 CARDIOVASCULAR: Regular rate and rhythm. RESPIRATORY: No accessory muscle use. Clear to auscultation. Breath sounds equal bilaterally. GASTROINTESTINAL: Abdomen soft, non-tender, nondistended. Hepatic and splenic margins not palpable. MUSCULOSKELETAL: Extremities without clubbing, cyanosis, or edema. No obvious deformities. NEUROLOGICAL: Awake and alert. No obvious cranial nerve deficits. Motor grossly within normal limits. 3 out of 5 muscle strength in the arms and legs. Normal speech. PSYCHIATRIC: INAppropriate mood and affect; insight and judgment ABnormal. Procedures none Medications and IVs Current Medications Sodium Chloride 1,000 ml @ 100 mls/hr Q10H IV Last administered on 10/09/17at 03:38; Start 10/08/17 at 16:11 Sodium Chloride (NS Flush) 2 ml UNSCH PRN IV FLUSH FLUSH AFTER USING IV ACCESS ; Start 10/08/17 at 16:15 Sodium Chloride (NS Flush) 2 ml BID IV FLUSH ; Start 10/08/17 at 21:00 Acetaminophen (Tylenol) 650 mg Q4H PRN PO TEMP > 100.4; Start 10/08/17 at 16:15 Ondansetron HCl (Zofran Inj) 4 mg Q6H PRN IVP NAUSEA OR VOMITING; Start at 16:15 Metoclopramide HCl (Reglan Inj) 5 mg Q6H PRN IV PUSH NAUSEA OR VOMITING; Start 10/08/17 at 16:15 Enoxaparin Sodium (Lovenox Inj) 30 mg Q24H SQ Last administered on 10/08/17at 17 :27; Start 10/08/17 at 17:00 Acetaminophen (Tylenol) 650 mg Q6H PRN PO PAIN SCALE 1 TO 2; Start 10/08/17 at 16:15 Oxycodone/ Acetaminophen (Percocet 5-325 Mg) 1 tab Q6H PRN PO PAIN SCALE 3 TO 5; Start 10/08/17 at 16:15 Oxycodone/ Acetaminophen (Percocet 10-325 Mg) 1 tab Q6H PRN PO PAIN SCALE 6 TO 10; Start 10/08/17 at 16:15 Morphine Sulfate (Morphine Inj) 2 mg Q3H PRN IV PUSH Pain 3-5; if po not working; Start 10/08/17 at 16:15 Morphine Sulfate (Morphine Inj) 4 mg Q3H PRN IV PUSH Pain 6-10;if po not working; Start 10/08/17 at 16:15 Morphine Sulfate (Morphine Inj) 4 mg Q1H PRN IV PUSH PAIN SCALE 7-10 ( INTRACTABLE); Start 10/08/17 at 16:15; Stop 10/08/17 at 16:46; Status DC Morphine Sulfate (Morphine Inj) 4 mg Q3H PRN IV PUSH BREAKTHROUGH PAIN; Start 10/08/17 at 16:15 Naloxone HCl (Narcan Inj) 0.4 mg UNSCH PRN IV PUSH SEE LABEL COMMENTS; Start at 16:15 Senna/Docusate Sodium (Arin-Colace) 1 tab BID PO ; Start 10/08/17 at 21:00 Magnesium Hydroxide (Milk Of Magnesia Liq) 30 ml Q12H PRN PO Mild constipation ; Start 10/08/17 at 16:15 Sennosides (Senokot) 17.2 mg Q12H PRN PO Moderate constipation; Start 10/08/17 at 16:15 Bisacodyl (Dulcolax Supp) 10 mg DAILY PRN RECTAL SEVERE CONSITIPATION; Start at 16:15 Lactulose (Lactulose Liq) 30 ml DAILY PRN PO SEVERE CONSITIPATION; Start at 16:15 Amlodipine Besylate (Norvasc) 10 mg DAILY PO ; Start 10/09/17 at 09:00 Aspirin (Ecotrin Ec) 162 mg DAILY PO ; Start 10/09/17 at 09:00 Buspirone HCl (Buspar) 30 mg BID PO ; Start 10/08/17 at 21:00 Carboxymethylcellulose Sodium (Refresh Tears 0.5% Opt Soln) 1 drop QID EACH EYE ; Start 10/08/17 at 18:00 Fluoxetine HCl (PROzac) 80 mg DAILY PO ; Start 10/09/17 at 09:00 Gabapentin (Neurontin) 100 mg Q8HR PO Last administered on 10/09/17at 06:00; Start 10/08/17 at 17:00 Pravastatin Sodium (Pravachol) 80 mg DAILY PO ; Start 10/09/17 at 09:00 Fluticasone Propionate (Flonase [place]) 1 spray BID EACH NARE ; Start 10/08/17 at 21:00 Melatonin (Melatonin) 30 mg HS PRN PO SLEEP; Start 10/08/17 at 16:30 Dextrose (D50w (Vial) Inj) 50 ml UNSCH PRN IV PUSH HYPOGLYCEMIA-SEE COMMENTS; Start 10/08/17 at 16:30 Glucagon (Glucagon Inj) 1 mg UNSCH PRN OTHER HYPOGLYCEMIA-SEE COMMENTS; Start 10/08/17 at 16:30 Clonidine (Catapres) 0.1 mg Q4H PRN PO SBP>160, DBP>90; Start 10/08/17 at 16:30 Insulin Aspart (NovoLOG SUPPLEMENTAL SCALE) 1 ACHS SLIDING SCALE SQ ; Start at 17:00 A/P Problem List: (1) Gait abnormality ICD Code: R26.9 - Unspecified abnormalities of gait and mobility Status: Acute (2) Frequent falls ICD Code: R29.6 - Repeated falls Status: Acute (3) Unable to ambulate ICD Code: R26.2 - Difficulty in walking, not elsewhere classified Status: Acute (4) Failure to thrive in adult ICD Code: R62.7 - Adult failure to thrive Status: Acute (5) Dementia ICD Code: F03.90 - Unspecified dementia without behavioral disturbance Status: Acute (6) Generalized weakness ICD Code: R53.1 - Weakness Status: Acute (7) DM (diabetes mellitus) ICD Code: E11.9 - Type 2 diabetes mellitus without complications Status: Chronic (8) Hyperlipemia ICD Code: E78.5 - Hyperlipidemia, unspecified Status: Chronic (9) Depression ICD Code: F32.9 - Major depressive disorder, single episode, unspecified Status: Chronic (10) DM2 (diabetes mellitus, type 2) ICD Code: E11.9 - Type 2 diabetes mellitus without complications Status: Acute (11) Altered mental status ICD Code: R41.82 - Altered mental status, unspecified Status: Acute Assessment and Plan Multiple falls with gait instability and failure to thrive continue physical therapy and occupational therapy Cachexia and poor oral intake with failure to thrive Encourage p.o. intake Depression and anxiety Home medications inability to care for himself Inability to ambulate with gait instability needs aggressive physical therapy and Occupational Therapy Frequent falls needs aggressive physical therapy and Occupational Therapy Dementia and inability to care for himself needs safe place at discharge will probably need SNF Diabetes mellitus with inability to take his medications for this Hypertension Hyperlipidemia Dehydration with renal insufficiency Anxiety and depression High risk for falls continue with physical therapy and Occupational Therapy Peripheral neuropathy with decreased sensation and high risk of falls HYPOKALEMIA WILL REPLACE HYPOMAGNESIA WILL REPLACE Discharge Planning PT and OT Problem Qualifiers (1) Dementia: Qualified Codes: F03.90 - Unspecified dementia without behavioral disturbance Manjit Pham DO Oct 09, 2017 09:23
[2017-10-09] MEDS: POTASSIUM CHLOR 20 MEQ PREMIX 100 ML IV SCH ×3 (09:30→17:31)
[2017-10-09] MEDS: DOCUSATE SODIUM 50 MG/SENNA 8.6 MG TAB PO SCH (11:12)
[2017-10-09] MEDS: FLUoxetine HCL 20 MG CAP PO SCH (11:13)
[2017-10-09] MEDS: PRAVASTATIN SOD 80 MG TAB PO SCH (11:13)
[2017-10-09] MEDS: busPIRone HCL 10 MG TAB PO SCH (11:13)
[2017-10-09] MEDS: ASPIRIN EC 81 MG TABEC PO SCH (11:14)
[2017-10-09] MEDS: MAGNESIUM SULFATE 1 GM PREMIX 100 ML IV SCH ×2 (11:14→12:28)
[2017-10-09] MEDS: CARBOXYMETHYLCELL SOD 0.5% OPTH SOLN 15 ML BTL EACH EYE SCH ×4 (11:15→21:00)
[2017-10-09] MEDS: FLUTICASONE PROPIONATE 50 MCG/ACT 16 GM NASAL SPRAY EACH NARE SCH ×2 (11:15→21:00)
[2017-10-09 15:39] LABS: HEMOGLOBIN A1C 6.1 % (4.3-6.0)
[2017-10-09] MEDS: ENOXAPARIN SODIUM 30 MG/0.3 ML SYRINGE SQ SCH (17:31)
--- NOTE | 2017-10-09 23:29 | EKG ---
Date Performed: 10/09/2017 Time Performed: 00:03:35 PTAGE: 77 years EKG: Sinus rhythm POSSIBLE INFERIOR MYOCARDIAL INFARCTION BORDERLINE ECG PREVIOUS TRACING : 10/08/2017 16.36 Since the previous tracing, no significant change noted DOCTOR: Tyson Rogers Interpretating Date/Time 10/09/2017 23:26:44
--- NOTE | 2017-10-09 23:40 | EKG ---
Date Performed: 10/08/2017 Time Performed: 16:36:50 PTAGE: 77 years EKG: Sinus rhythm NORMAL ECG PREVIOUS TRACING : 07/27/2016 22.54 Since the previous tracing, no significant change noted DOCTOR: Tyson Rogers Interpretating Date/Time 10/09/2017 23:37:32
[2017-10-10] VITALS (21 sets, daily range): BP systolic 121–143; BP diastolic 68–77; PULSE 59–72; RESP 16–18; TEMP 97.8–98.5; O2SAT 95–99
[2017-10-10] MEDS: busPIRone HCL 10 MG TAB PO SCH ×3 (00:43→21:06)
[2017-10-10] MEDS: DOCUSATE SODIUM 50 MG/SENNA 8.6 MG TAB PO SCH ×3 (00:43→21:00)
[2017-10-10] MEDS: GABAPENTIN 100 MG CAP PO SCH ×4 (00:43→21:06)
[2017-10-10] MEDS: SODIUM CHLORIDE 0.9% FLUSH 10 ML FLUSH IV FLUSH SCH ×3 (00:44→21:07)
[2017-10-10] MEDS: SODIUM CHLOR 0.9% 1000 ML INJ 1,000 ML IV SCH ×3 (00:44→18:11)
[2017-10-10] MEDS: POTASSIUM CHLOR 20 MEQ PREMIX 100 ML IV SCH (00:45)
[2017-10-10 06:23] LABS: AUTOMATED NEUTROPHIL # 8.3 TH/MM3 (1.8-7.7); BASOPHIL # 0.1 TH/MM3 (0-0.2); BASOPHIL % 0.7 % (0.0-2.0); EOSINOPHIL # 0.3 TH/MM3 (0-0.4); EOSINOPHIL % 2.3 % (0.0-4.0); HEMATOCRIT 33.5 % (39.0-51.0); HEMOGLOBIN 11.8 GM/DL (13.0-17.0); LYMPH % 14.9 % (9.0-44.0); LYMPHOCYTE # 1.7 TH/MM3 (1.0-4.8); MEAN CELL VOLUME 93.8 FL (80.0-100.0); MEAN CORPUSCULAR HGB CONC 35.2 % (32.0-36.0); MEAN PLATELET VOLUME 7.3 FL (7.0-11.0); MONO % 8.2 % (0.0-8.0); MONOCYTE # 0.9 TH/MM3 (0-0.9); NEUT % 73.9 % (16.0-70.0); PLATELET COUNT 178 TH/MM3 (150-450); RED BLOOD COUNT 3.57 MIL/MM3 (4.50-5.90); RED CELL DISTRIBUTION WIDTH 13.3 % (11.6-17.2); WHITE BLOOD COUNT 11.3 TH/MM3 (4.0-11.0)
[2017-10-10 06:47] LABS: ALBUMIN 2.9 GM/DL (3.4-5.0); ALT (GPT) 45 U/L (12-78); AST (GOT) 30 U/L (15-37); BICARBONATE 26.5 MEQ/L (21.0-32.0); BLOOD UREA NITROGEN 26 MG/DL (7-18); CALCIUM 8.5 MG/DL (8.5-10.1); CHLORIDE 103 MEQ/L (98-107); CREATININE 1.44 MG/DL (0.60-1.30); GLOMERULAR FILTRATION RATE 48 ML/MIN (>89); GLUCOSE,RANDOM 133 MG/DL (74-106); MAGNESIUM 1.9 MG/DL (1.5-2.5); PHOSPHORUS 2.1 MG/DL (2.5-4.9); SODIUM (NA) 138 MEQ/L (136-145)
[2017-10-10 06:49] LABS: ALKALINE PHOSPHATASE 74 U/L (45-117); TOTAL BILIRUBIN ADULT 0.5 MG/DL (0.2-1.0); TOTAL PROTEIN 6.6 GM/DL (6.4-8.2)
[2017-10-10] MEDS: INSULIN ASPART SUPPLEMENTAL SCALE SQ SCH ×4 (08:00→21:07)
[2017-10-10] MEDS: FLUoxetine HCL 20 MG CAP PO SCH (08:26)
[2017-10-10] MEDS: PRAVASTATIN SOD 80 MG TAB PO SCH (08:26)
[2017-10-10] MEDS: ASPIRIN EC 81 MG TABEC PO SCH (08:26)
[2017-10-10] MEDS ORDERED: MAGNESIUM SULFATE 1 GM PREMIX 100 ML IV ONE (08:45)
--- NOTE | 2017-10-10 08:50 | HHI.PR ---
Subjective Remarks This is a pleasant 77 y/o Male who had a fall at home, he was supposed to use a walker but he is not been able to do that, he said that he fell backward and states he hit the back of his head. He does complain of headache and some neck discomfort. He does not remember the fall or what caused it. Has some degree of dementia. Is covered in urine. His depends are soaked. Left arm skin tear, Needs aggressive physical therapy and occupational therapy. awaiting final by manager supply for discharge to SNF. 10/10: Seen in his bedroom, stable, follow recommendations by Dietitian, following recommendations by Physical Therapy. Speech therapy gave recommendations for Regular diet and thin liquids. No nausea, vomit or diarrhea. Objective Vital Signs Date Time Temp Pulse Resp B/P (MAP) Pulse Ox O2 Delivery O2 Flow Rate FiO2 10/10/17 07:01 61 10/10/17 04:15 64 10/10/17 00:38 98.1 62 16 142/76 (98) 98 10/10/17 00:00 61 10/10/17 00:00 62 10/09/17 23:00 60 10/09/17 22:00 62 10/09/17 21:00 60 10/09/17 20:00 60 10/09/17 20:00 60 10/09/17 19:27 97.0 63 18 150/79 (102) 99 10/09/17 16:00 95.6 60 17 155/70 (98) 99 10/09/17 12:00 96.0 65 17 150/69 (96) 96 I/O 10/09/17 10/09/17 10/09/17 10/10/17 10/10/17 10/10/17 07:00 15:00 23:00 07:00 15:00 23:00 Intake Total 350 ml 200 ml Output Total 200 ml 150 ml Balance 150 ml 200 ml -150 ml Intake Oral 350 ml IV Total 200 ml Output Urine Total 200 ml 150 ml # Voids 1 # Bowel Movements 0 Result Diagram: 10/10/17 0529 10/10/17 0529 Imaging Last Impressions Pelvis X-Ray 10/08/17 0000 Signed Impressions: Service Date/Time: Sunday, October 08, 2017 11:48 - CONCLUSION: No acute fracture. Mahin Lewis MD Lumbar Spine X-Ray 10/08/17 0000 Signed Impressions: Service Date/Time: Sunday, October 08, 2017 11:49 - CONCLUSION: 1. Degenerative changes within the lumbar spine as above. No definite fracture identified. Daron Rodriguez MD Head CT 10/08/17 0000 Signed Impressions: Service Date/Time: Sunday, October 08, 2017 11:26 - CONCLUSION: 1. Stable senescent changes and moderate periventricular ischemic small vessel white matter demyelination. 2. No acute intracranial abnormality. Hernesto Wheatley MD Chest X-Ray 10/08/17 0000 Signed Impressions: Service Date/Time: Sunday, October 08, 2017 11:57 - CONCLUSION: No acute disease. Mahin Lewis MD Cervical Spine CT 10/08/17 0000 Signed Impressions: Service Date/Time: Sunday, October 08, 2017 11:26 - CONCLUSION: 1. No acute fracture. Probable disc protrusion at C5-6. Left lateral recess stenosis at C6- 7 likely from degenerative change. Joe Slade MD Procedures None Other Results Laboratory Tests Test 10/08/17 12:15 10/09/17 00:40 10/10/17 05:29 Urine Color YELLOW Urine Turbidity CLEAR Urine pH 6.0 Urine Specific [place] 1.018 Urine Protein 100 mg/dL Urine Glucose (UA) 70 mg/dL Urine Ketones TRACE mg/dL Urine Occult Blood SMALL Urine Nitrite NEG Urine Bilirubin NEG Urine Urobilinogen LESS THAN 2.0 MG/DL Urine Leukocyte Esterase NEG Urine RBC 2 /hpf Urine WBC 1 /hpf Urine Hyaline Casts 1 /lpf Urine Mucus FEW /lpf Microscopic Urinalysis Comment CATH-CULT NOT IND Hemoglobin A1c 6.1 % Total Creatine Kinase 121 U/L Troponin I LESS THAN 0.02 NG/ML Free Thyroxine 1.12 NG/DL Thyroid Stimulating Hormone 3rd Gen 1.270 uIU/ML White Blood Count 11.3 TH/MM3 Red Blood Count 3.57 MIL/MM3 Hemoglobin 11.8 GM/DL Hematocrit 33.5 % Mean Corpuscular Volume 93.8 FL Mean Corpuscular Hemoglobin 33.0 PG Mean Corpuscular Hemoglobin Concent 35.2 % Red Cell Distribution Width 13.3 % Platelet Count 178 TH/MM3 Mean Platelet Volume 7.3 FL Neutrophils (%) (Auto) 73.9 % Lymphocytes (%) (Auto) 14.9 % Monocytes (%) (Auto) 8.2 % Eosinophils (%) (Auto) 2.3 % Basophils (%) (Auto) 0.7 % Neutrophils # (Auto) 8.3 TH/MM3 Lymphocytes # (Auto) 1.7 TH/MM3 Monocytes # (Auto) 0.9 TH/MM3 Eosinophils # (Auto) 0.3 TH/MM3 Basophils # (Auto) 0.1 TH/MM3 CBC Comment DIFF FINAL Differential Comment Blood Urea Nitrogen 26 MG/DL Creatinine 1.44 MG/DL Random Glucose 133 MG/DL Total Protein 6.6 GM/DL Albumin 2.9 GM/DL Calcium Level 8.5 MG/DL Phosphorus Level 2.1 MG/DL Magnesium Level 1.9 MG/DL Alkaline Phosphatase 74 U/L Aspartate Amino Transf (AST/SGOT) 30 U/L Alanine Aminotransferase (ALT/SGPT) 45 U/L Total Bilirubin 0.5 MG/DL Sodium Level 138 MEQ/L Potassium Level 3.7 MEQ/L Chloride Level 103 MEQ/L Carbon Dioxide Level 26.5 MEQ/L Anion Gap 9 MEQ/L Estimat Glomerular Filtration Rate 48 ML/MIN Objective Remarks GENERAL: Awake alert and oriented SKIN: Multiple ecchymotic lesions on four extremities. HEAD: Atraumatic. Normocephalic. EYES: Pupils equal and round. No scleral icterus. No injection or drainage. Extraocular muscles intact ENT: No nasal bleeding or discharge. Mucous membranes pink and moist. Tongue is midline NECK: Trachea midline. No JVD. Supple S1-S2 no S3 or S4 CARDIOVASCULAR: Regular rate and rhythm. RESPIRATORY: No accessory muscle use. Clear to auscultation. Breath sounds equal bilaterally. GASTROINTESTINAL: Abdomen soft, non-tender, nondistended. MUSCULOSKELETAL: Extremities without clubbing, cyanosis, or edema. NEUROLOGICAL: Awake and alert. No obvious cranial nerve deficits. PSYCHIATRIC: Mood is stable today. Medications and IVs Current Medications Medications (Trade) Dose Ordered Sig/Tung Route Start Time Stop Time Status Last Admin Sodium Chloride 1,000 ml @ 100 mls/hr Q10H IV 10/08/17 16:11 10/10/17 00:44 (NS Flush) 2 ml UNSCH PRN IV FLUSH 10/08/17 16:15 (NS Flush) 2 ml BID IV FLUSH 10/08/17 21:00 10/10/17 08:27 (Tylenol) 650 mg Q4H PRN PO 10/08/17 16:15 (Zofran Inj) 4 mg Q6H PRN IVP 10/08/17 16:15 (Reglan Inj) 5 mg Q6H PRN IV PUSH 10/08/17 16:15 (Lovenox Inj) 30 mg Q24H SQ 10/08/17 17:00 10/09/17 17:31 (Tylenol) 650 mg Q6H PRN PO 10/08/17 16:15 (Percocet 5-325 Mg) 1 tab Q6H PRN PO 10/08/17 16:15 (Percocet 10-325 Mg) 1 tab Q6H PRN PO 10/08/17 16:15 (Morphine Inj) 2 mg Q3H PRN IV PUSH 10/08/17 16:15 (Morphine Inj) 4 mg Q3H PRN IV PUSH 10/08/17 16:15 (Morphine Inj) 4 mg Q3H PRN IV PUSH 10/08/17 16:15 (Narcan Inj) 0.4 mg UNSCH PRN IV PUSH 10/08/17 16:15 (Arin-Colace) 1 tab BID PO 10/08/17 21:00 10/10/17 08:26 (Milk Of Magnesia Liq) 30 ml Q12H PRN PO 10/08/17 16:15 (Senokot) 17.2 mg Q12H PRN PO 10/08/17 16:15 (Dulcolax Supp) 10 mg DAILY PRN RECTAL 10/08/17 16:15 (Lactulose Liq) 30 ml DAILY PRN PO 10/08/17 16:15 (Norvasc) 10 mg DAILY PO 10/09/17 09:00 10/10/17 08:26 (Ecotrin Ec) 162 mg DAILY PO 10/09/17 09:00 10/10/17 08:26 (Buspar) 30 mg BID PO 10/08/17 21:00 10/10/17 08:26 (Refresh Tears 0.5% Opth Soln) 1 drop QID EACH EYE 10/08/17 18:00 10/09/17 17:32 (PROzac) 80 mg DAILY PO 10/09/17 09:00 10/10/17 08:26 (Neurontin) 100 mg Q8HR PO 10/08/17 17:00 10/10/17 07:58 (Pravachol) 80 mg DAILY PO 10/09/17 09:00 10/10/17 08:26 (Flonase John Spr) 1 spray BID EACH NARE 10/08/17 21:00 10/09/17 11:15 (Melatonin) 30 mg HS PRN PO 10/08/17 16:30 (D50w (Vial) Inj) 50 ml UNSCH PRN IV PUSH 10/08/17 16:30 (Glucagon Inj) 1 mg UNSCH PRN OTHER 10/08/17 16:30 (Catapres) 0.1 mg Q4H PRN PO 10/08/17 16:30 (NovoLOG SUPPLEMENTAL SCALE) 1 ACHS SLIDING SCALE SQ 10/08/17 17:00 10/09/17 17:30 A/P Assessment and Plan (1) Gait abnormality ICD Code: R26.9 - Unspecified abnormalities of gait and mobility Status: Acute (2) Frequent falls ICD Code: R29.6 - Repeated falls Status: Acute (3) Unable to ambulate ICD Code: R26.2 - Difficulty in walking, not elsewhere classified Status: Acute (4) Failure to thrive in adult ICD Code: R62.7 - Adult failure to thrive Status: Acute (5) Dementia ICD Code: F03.90 - Unspecified dementia without behavioral disturbance Status: Acute (6) Generalized weakness ICD Code: R53.1 - Weakness Status: Acute (7) DM (diabetes mellitus) ICD Code: E11.9 - Type 2 diabetes mellitus without complications Status: Chronic (8) Hyperlipemia ICD Code: E78.5 - Hyperlipidemia, unspecified Status: Chronic (9) Depression ICD Code: F32.9 - Major depressive disorder, single episode, unspecified Status: Chronic (10) DM2 (diabetes mellitus, type 2) ICD Code: E11.9 - Type 2 diabetes mellitus without complications Status: Acute (11) Altered mental status ICD Code: R41.82 - Altered mental status, unspecified Status: Acute Multiple falls with gait instability to continue aggressive Physical Therapy and Occupational therapy awaiting manager supply for placement he will need prison rehabilitation. Cachexia and poor oral intake encourage PO intake asked for Dietitian and Speech therapy for Swallow eval. recommended for Regular diet. added Ensure shakes. Depression and anxiety to continue home medicines Dementia and inability to care for himself needs safe place at discharge will probably need SNF, continue Namenda. Diabetes mellitus with inability to take his medications for this Hypertension controlled to follow while inhouse and make adjustments. Hyperlipidemia continue Home medicines. CKD III stable. Peripheral neuropathy with decreased sensation and high risk of falls electrolyte derangement replaced and following. DVT prophylaxis with Heparin. Discharge Planning Awaiting final by Traffic Coordinator and PT/OT/ST Bryon Osuna MD Oct 10, 2017 08:50
[2017-10-10] MEDS ORDERED: POTASSIUM PHOSPHATE INJ 15 MMOL in SODIUM CHLORIDE 0.9% INJ 150 ML IV ONE (09:00)
[2017-10-10] MEDS: CARBOXYMETHYLCELL SOD 0.5% OPTH SOLN 15 ML BTL EACH EYE SCH ×4 (12:58→21:00)
[2017-10-10] MEDS: FLUTICASONE PROPIONATE 50 MCG/ACT 16 GM NASAL SPRAY EACH NARE SCH ×2 (12:58→21:00)
--- NOTE | 2017-10-10 16:22 | PQ ---
Physician Query Response Document PATIENT: REYNA COYNE : 1940 ADMIT DATE: 10/08/2017 4:02 PM DISCH DATE: RESPONDING PROVIDER #: [email or web address] QUERY TEXT: CDS Clarification Acute kidney Injury/Failure present on admission in the setting of HTN and poor oral intake treated w ith IVF at 100cc/hr Other explanation of clinical findings. Unable to determine (no explanation for clinical findings). The patient's Clinical Indicators include: Acute kidney Injury/Failure present on admission in the setting of HTN and poor oral intake treated w ith IVF at 100cc/hr Other explanation of clinical findings. Unable to determine (no explanation for clinical findings). The medical record reflects the following clinical findings, treatment, and risk factors. * Clinical Indicators: Creatinine: 1.48--> 1.61 * Risk Factors: Cachexia, HTN and poor oral intake * Treatment: IVF @100cc/hr, serial labs Please clarify and document your clinical opinion in the progress notes and discharge summary includi ng the definitive and/or presumptive diagnosis (suspected or probable), related to the above clinical findings. Please include clinical findings supporting your diagnosis. Thank you, Annmarie Simons RN/CDS ext [phone] Query created by: Annmarie Simons on 10/10/2017 4:02 PM RESPONSE TEXT: The patient has not got acute kidney injury he has Chronic kidney disease stage III see the trend for the last 10 years For malnutrition he is able to eat but may need better Care for this reason will go to senior living reha bilitation. QUERY TEXT: CDS Clarification Unspecified protein-calorie malnutrition in the setting of "Cachexia and poor oral intake with failur e to thrive" with "dietitian consult" Other explanation of clinical findings. Unable to determine (no explanation for clinical findings). The patient's Clinical Indicators include: The medical record reflects the following clinical findings, treatment, and risk factors. * Clinical Indicators:"Cachexia and poor oral intake with failure to thrive" * Risk Factors: Dementia, Diabetes, AMS * Treatment: Dietitician consult, High calorie ADA diet, Glucerna shakes Please clarify and document your clinical opinion in the progress notes and discharge summary includi ng the definitive and/or presumptive diagnosis (suspected or probable), related to the above clinical findings. Please include clinical findings supporting your diagnosis. Thank you, Annmarie Simons RN/CDS Ext [phone] Query created by: Annmarie Simons on 10/10/2017 4:05 PM RESPONSE TEXT: As I said the patient may need better Care meaning Shelter Supervisor, at this point will go to Rehab facility because as per speech therapy there was no limitation for his intake, he has Regular diet consistenc y, will need nursing home Rehabilitation. Electronically signed by: Bryon Mercedes MD 10/10/2017 4:18 PM
[2017-10-10] MEDS: ENOXAPARIN SODIUM 30 MG/0.3 ML SYRINGE SQ SCH (17:57)
[2017-10-11] VITALS (16 sets, daily range): BP systolic 144–158; BP diastolic 5–82; PULSE 65–74; RESP 16–18; TEMP 97.3–98.6; O2SAT 97–98
[2017-10-11] MEDS: SODIUM CHLOR 0.9% 1000 ML INJ 1,000 ML IV SCH (04:11)
[2017-10-11] MEDS: GABAPENTIN 100 MG CAP PO SCH ×2 (05:54→14:00)
[2017-10-11] MEDS: INSULIN ASPART SUPPLEMENTAL SCALE SQ SCH ×2 (08:00→12:00)
--- NOTE | 2017-10-11 08:56 | HHI.PR ---
Subjective Remarks This is a pleasant 77 y/o Male who had a fall at home, he was supposed to use a walker but he is not been able to do that, he said that he fell backward and states he hit the back of his head. He does complain of headache and some neck discomfort. He does not remember the fall or what caused it. Has some degree of dementia. Is covered in urine. His depends are soaked. Left arm skin tear, Needs aggressive physical therapy and occupational therapy. awaiting final by training program manager for discharge to SNF. 10/10: Seen in his bedroom, stable, follow recommendations by Dietitian, following recommendations by Physical Therapy. Speech therapy gave recommendations for Regular diet and thin liquids. 10/11: Stable in his bedroom, alert and oriented, no nausea, vomit or diarrhea. okay to discharge for termination clerk rehabilitation, the patient is not able to take care of himself and has no family support at this time, he has a relative in another state. Objective Vital Signs Date Time Temp Pulse Resp B/P (MAP) Pulse Ox O2 Delivery O2 Flow Rate FiO2 10/11/17 04:00 97.3 71 18 153/81 (105) 98 10/11/17 04:00 70 10/11/17 00:00 97.7 69 16 152/82 (105) 97 10/11/17 00:00 67 10/10/17 22:32 99 10/10/17 20:00 97.8 63 18 136/76 (96) 98 10/10/17 20:00 64 10/10/17 18:01 62 10/10/17 17:00 60 10/10/17 16:00 60 10/10/17 15:45 97.9 61 18 130/68 (88) 99 10/10/17 15:00 59 10/10/17 14:00 60 10/10/17 13:00 62 10/10/17 12:01 98.5 63 18 121/69 (86) 99 10/10/17 12:00 62 10/10/17 11:00 64 10/10/17 10:00 64 10/10/17 09:41 95 21 10/10/17 09:00 60 I/O 10/10/17 10/10/17 10/10/17 10/11/17 10/11/17 10/11/17 07:00 15:00 23:00 07:00 15:00 23:00 Intake Total 690 ml 1122 ml Output Total 150 ml 600 ml 500 ml Balance -150 ml 90 ml 622 ml Intake Oral 690 ml 240 ml IV Total 882 ml Output Urine Total 150 ml 600 ml 500 ml # Voids 1 2 # Bowel Movements 2 0 Result Diagram: 10/10/17 0529 10/10/17 0529 Imaging Last Impressions Pelvis X-Ray 10/08/17 0000 Signed Impressions: Service Date/Time: Sunday, October 08, 2017 11:48 - CONCLUSION: No acute fracture. Mahin Lewis MD Lumbar Spine X-Ray 10/08/17 0000 Signed Impressions: Service Date/Time: Sunday, October 08, 2017 11:49 - CONCLUSION: 1. Degenerative changes within the lumbar spine as above. No definite fracture identified. Daron Rodriguez MD Head CT 10/08/17 0000 Signed Impressions: Service Date/Time: Sunday, October 08, 2017 11:26 - CONCLUSION: 1. Stable senescent changes and moderate periventricular ischemic small vessel white matter demyelination. 2. No acute intracranial abnormality. Hernesto Wheatley MD Chest X-Ray 10/08/17 0000 Signed Impressions: Service Date/Time: Sunday, October 08, 2017 11:57 - CONCLUSION: No acute disease. Mahin Lewis MD Cervical Spine CT 10/08/17 0000 Signed Impressions: Service Date/Time: Sunday, October 08, 2017 11:26 - CONCLUSION: 1. No acute fracture. Probable disc protrusion at C5-6. Left lateral recess stenosis at C6- 7 likely from degenerative change. Joe Slade MD Procedures None Other Results Laboratory Tests Test 10/08/17 12:15 10/09/17 00:40 10/10/17 05:29 Urine Color YELLOW Urine Turbidity CLEAR Urine pH 6.0 Urine Specific [place] 1.018 Urine Protein 100 mg/dL Urine Glucose (UA) 70 mg/dL Urine Ketones TRACE mg/dL Urine Occult Blood SMALL Urine Nitrite NEG Urine Bilirubin NEG Urine Urobilinogen LESS THAN 2.0 MG/DL Urine Leukocyte Esterase NEG Urine RBC 2 /hpf Urine WBC 1 /hpf Urine Hyaline Casts 1 /lpf Urine Mucus FEW /lpf Microscopic Urinalysis Comment CATH-CULT NOT IND Hemoglobin A1c 6.1 % Total Creatine Kinase 121 U/L Troponin I LESS THAN 0.02 NG/ML Free Thyroxine 1.12 NG/DL Thyroid Stimulating Hormone 3rd Gen 1.270 uIU/ML White Blood Count 11.3 TH/MM3 Red Blood Count 3.57 MIL/MM3 Hemoglobin 11.8 GM/DL Hematocrit 33.5 % Mean Corpuscular Volume 93.8 FL Mean Corpuscular Hemoglobin 33.0 PG Mean Corpuscular Hemoglobin Concent 35.2 % Red Cell Distribution Width 13.3 % Platelet Count 178 TH/MM3 Mean Platelet Volume 7.3 FL Neutrophils (%) (Auto) 73.9 % Lymphocytes (%) (Auto) 14.9 % Monocytes (%) (Auto) 8.2 % Eosinophils (%) (Auto) 2.3 % Basophils (%) (Auto) 0.7 % Neutrophils # (Auto) 8.3 TH/MM3 Lymphocytes # (Auto) 1.7 TH/MM3 Monocytes # (Auto) 0.9 TH/MM3 Eosinophils # (Auto) 0.3 TH/MM3 Basophils # (Auto) 0.1 TH/MM3 CBC Comment DIFF FINAL Differential Comment Blood Urea Nitrogen 26 MG/DL Creatinine 1.44 MG/DL Random Glucose 133 MG/DL Total Protein 6.6 GM/DL Albumin 2.9 GM/DL Calcium Level 8.5 MG/DL Phosphorus Level 2.1 MG/DL Magnesium Level 1.9 MG/DL Alkaline Phosphatase 74 U/L Aspartate Amino Transf (AST/SGOT) 30 U/L Alanine Aminotransferase (ALT/SGPT) 45 U/L Total Bilirubin 0.5 MG/DL Sodium Level 138 MEQ/L Potassium Level 3.7 MEQ/L Chloride Level 103 MEQ/L Carbon Dioxide Level 26.5 MEQ/L Anion Gap 9 MEQ/L Estimat Glomerular Filtration Rate 48 ML/MIN Objective Remarks GENERAL: Awake alert and oriented SKIN: Multiple ecchymotic lesions on four extremities. HEAD: Atraumatic. Normocephalic. EYES: Pupils equal and round. No scleral icterus. No injection or drainage. Extraocular muscles intact ENT: No nasal bleeding or discharge. Mucous membranes pink and moist. Tongue is midline NECK: Trachea midline. No JVD. Supple S1-S2 no S3 or S4 CARDIOVASCULAR: Regular rate and rhythm. RESPIRATORY: No accessory muscle use. Clear to auscultation. Breath sounds equal bilaterally. GASTROINTESTINAL: Abdomen soft, non-tender, nondistended. MUSCULOSKELETAL: Extremities without clubbing, cyanosis, or edema. NEUROLOGICAL: Awake and alert. No obvious cranial nerve deficits. PSYCHIATRIC: Mood is stable today. Medications and IVs Current Medications Medications (Trade) Dose Ordered Sig/Tung Route Start Time Stop Time Status Last Admin Sodium Chloride 1,000 ml @ 100 mls/hr Q10H IV 10/08/17 16:11 10/10/17 12:56 (NS Flush) 2 ml UNSCH PRN IV FLUSH 10/08/17 16:15 10/10/17 12:55 (NS Flush) 2 ml BID IV FLUSH 10/08/17 21:00 10/10/17 21:07 (Tylenol) 650 mg Q4H PRN PO 10/08/17 16:15 (Zofran Inj) 4 mg Q6H PRN IVP 10/08/17 16:15 (Reglan Inj) 5 mg Q6H PRN IV PUSH 10/08/17 16:15 (Lovenox Inj) 30 mg Q24H SQ 10/08/17 17:00 10/10/17 17:57 (Tylenol) 650 mg Q6H PRN PO 10/08/17 16:15 (Percocet 5-325 Mg) 1 tab Q6H PRN PO 10/08/17 16:15 (Percocet 10-325 Mg) 1 tab Q6H PRN PO 10/08/17 16:15 (Morphine Inj) 2 mg Q3H PRN IV PUSH 10/08/17 16:15 (Morphine Inj) 4 mg Q3H PRN IV PUSH 10/08/17 16:15 (Morphine Inj) 4 mg Q3H PRN IV PUSH 10/08/17 16:15 (Narcan Inj) 0.4 mg UNSCH PRN IV PUSH 10/08/17 16:15 (Arin-Colace) 1 tab BID PO 10/08/17 21:00 10/10/17 08:26 (Milk Of Magnesia Liq) 30 ml Q12H PRN PO 10/08/17 16:15 (Senokot) 17.2 mg Q12H PRN PO 10/08/17 16:15 (Dulcolax Supp) 10 mg DAILY PRN RECTAL 10/08/17 16:15 (Lactulose Liq) 30 ml DAILY PRN PO 10/08/17 16:15 (Norvasc) 10 mg DAILY PO 10/09/17 09:00 10/10/17 08:26 (Ecotrin Ec) 162 mg DAILY PO 10/09/17 09:00 10/10/17 08:26 (Buspar) 30 mg BID PO 10/08/17 21:00 10/10/17 21:06 (Refresh Tears 0.5% Opth Soln) 1 drop QID EACH EYE 10/08/17 18:00 10/10/17 18:00 (PROzac) 80 mg DAILY PO 10/09/17 09:00 10/10/17 08:26 (Neurontin) 100 mg Q8HR PO 10/08/17 17:00 10/11/17 05:54 (Pravachol) 80 mg DAILY PO 10/09/17 09:00 10/10/17 08:26 (Flonase John Spr) 1 spray BID EACH NARE 10/08/17 21:00 10/10/17 12:58 (Melatonin) 30 mg HS PRN PO 10/08/17 16:30 (D50w (Vial) Inj) 50 ml UNSCH PRN IV PUSH 10/08/17 16:30 (Glucagon Inj) 1 mg UNSCH PRN OTHER 10/08/17 16:30 (Catapres) 0.1 mg Q4H PRN PO 10/08/17 16:30 (NovoLOG SUPPLEMENTAL SCALE) 1 ACHS SLIDING SCALE SQ 10/08/17 17:00 10/10/17 21:07 A/P Assessment and Plan (1) Gait abnormality ICD Code: R26.9 - Unspecified abnormalities of gait and mobility Status: Acute (2) Frequent falls ICD Code: R29.6 - Repeated falls Status: Acute (3) Unable to ambulate ICD Code: R26.2 - Difficulty in walking, not elsewhere classified Status: Acute (4) Failure to thrive in adult ICD Code: R62.7 - Adult failure to thrive Status: Acute (5) Dementia ICD Code: F03.90 - Unspecified dementia without behavioral disturbance Status: Acute (6) Generalized weakness ICD Code: R53.1 - Weakness Status: Acute (7) DM (diabetes mellitus) ICD Code: E11.9 - Type 2 diabetes mellitus without complications Status: Chronic (8) Hyperlipemia ICD Code: E78.5 - Hyperlipidemia, unspecified Status: Chronic (9) Depression ICD Code: F32.9 - Major depressive disorder, single episode, unspecified Status: Chronic (10) DM2 (diabetes mellitus, type 2) ICD Code: E11.9 - Type 2 diabetes mellitus without complications Status: Acute (11) Altered mental status ICD Code: R41.82 - Altered mental status, unspecified Status: Acute Multiple falls with gait instability to continue aggressive Physical Therapy and Occupational therapy awaiting training program manager for placement he will need senior living rehabilitation. He is alert and oriented, okay to discharge for senior living rehabilitation, the patient is not able to take care of himself and has no family support at this time, he has a relative in another state. Cachexia and poor oral intake encourage PO intake asked for Dietitian and Speech therapy for Swallow eval. recommended for Regular diet. added Ensure shakes. Depression and anxiety to continue home medicines Dementia and inability to care for himself needs safe place at discharge will probably need SNF, continue Namenda. Diabetes mellitus with inability to take his medications, to continue home medicines at rehab. Hypertension controlled to follow while inhouse and make adjustments. Hyperlipidemia continue Home medicines. CKD III stable. Peripheral neuropathy with decreased sensation and high risk of falls electrolyte derangement secondary to poor oral intake replaced and following. DVT prophylaxis with Heparin. Discharge Planning Discharge to SNF today. Broyn Osuna MD Oct 11, 2017 08:56
[2017-10-11] MEDS: SODIUM CHLORIDE 0.9% FLUSH 10 ML FLUSH IV FLUSH SCH (09:00)
[2017-10-11] MEDS: PRAVASTATIN SOD 80 MG TAB PO SCH (09:24)
[2017-10-11] MEDS: FLUoxetine HCL 20 MG CAP PO SCH (09:24)
[2017-10-11] MEDS: busPIRone HCL 10 MG TAB PO SCH (09:24)
[2017-10-11] MEDS: ASPIRIN EC 81 MG TABEC PO SCH (09:24)
[2017-10-11] MEDS: DOCUSATE SODIUM 50 MG/SENNA 8.6 MG TAB PO SCH (09:24)
[2017-10-11] MEDS: FLUTICASONE PROPIONATE 50 MCG/ACT 16 GM NASAL SPRAY EACH NARE SCH (09:28)
[2017-10-11] MEDS: CARBOXYMETHYLCELL SOD 0.5% OPTH SOLN 15 ML BTL EACH EYE SCH ×2 (09:28→13:00)
[2017-10-11] MEDS ORDERED: OXYC1TAB63 PO (11:46)
[2017-10-11] MEDS ORDERED: HYDR12.56 PO (11:47)
--- NOTE | 2017-10-11 11:49 | HHI.DS ---
Discharge Summary Admission Date Oct 08, 2017 at 16:02 Discharge Date: Oct 11, 2017 Admitting Diagnosis failure to thrive,gen weaknes,unable to amb, mult falls (1) Gait abnormality ICD Code: R26.9 - Unspecified abnormalities of gait and mobility Diagnosis: Principal Status: Acute (2) Frequent falls ICD Code: R29.6 - Repeated falls Diagnosis: Principal Status: Acute (3) Unable to ambulate ICD Code: R26.2 - Difficulty in walking, not elsewhere classified Diagnosis: Principal Status: Acute (4) Dementia ICD Code: F03.90 - Unspecified dementia without behavioral disturbance Diagnosis: Principal Status: Acute (5) Generalized weakness ICD Code: R53.1 - Weakness Diagnosis: Principal Status: Acute (6) Depression ICD Code: F32.9 - Major depressive disorder, single episode, unspecified Diagnosis: Principal Status: Chronic (7) DM2 (diabetes mellitus, type 2) ICD Code: E11.9 - Type 2 diabetes mellitus without complications Diagnosis: Secondary Status: Acute (8) Altered mental status ICD Code: R41.82 - Altered mental status, unspecified Diagnosis: Principal Status: Acute Procedures none Brief History - From Admission Patient is a 77-year-old gentleman. Who was noted to have a fall at home. Supposedly he is able to use a walker but has not been able to do that. Patient states that he fell backward and states he hit the back of his head. He does complain of headache and some neck discomfort. He does not remember the fall or what caused it. Has some degree of dementia. Is covered in urine. His depends are soaked. Disclosure soaked in urine or dressing on the left arm from the skin tear soaked in urine he states that his landlady checks on him on occasion Patient is not a safe discharge. Needs aggressive physical therapy and occupational therapy. More than likely will need snf facility placement due to inability to ambulate and inability to take care of himself and failure to thrive CBC/BMP: 10/10/17 0529 10/10/17 0529 Significant Findings Laboratory Tests Test 10/08/17 12:15 10/08/17 16:30 10/09/17 00:40 10/09/17 04:37 White Blood Count 15.0 TH/MM3 (4.0-11.0) 11.1 TH/MM3 (4.0-11.0) Red Blood Count 3.95 MIL/MM3 (4.50-5.90) 3.66 MIL/MM3 (4.50-5.90) Hematocrit 37.3 % (39.0-51.0) 34.2 % (39.0-51.0) Neutrophils (%) (Auto) 83.6 % (16.0-70.0) 70.4 % (16.0-70.0) Neutrophils # (Auto) 12.5 TH/MM3 (1.8-7.7) 7.8 TH/MM3 (1.8-7.7) Monocytes # (Auto) 1.0 TH/MM3 (0-0.9) 1.1 TH/MM3 (0-0.9) Urine Protein 100 mg/dL (NEG-TRACE) Urine Glucose (UA) 70 mg/dL (NEG) Urine Ketones TRACE mg/dL (NEG) Urine Occult Blood SMALL (NEG) Urine Mucus FEW /lpf (OCC) Blood Urea Nitrogen 30 MG/DL (7-18) 30 MG/DL (7-18) Creatinine 1.48 MG/DL (0.60-1.30) 1.61 MG/DL (0.60-1.30) Random Glucose 140 MG/DL (74-106) 158 MG/DL (74-106) Estimat Glomerular Filtration Rate 46 ML/MIN (>89) 42 ML/MIN (>89) Troponin I LESS THAN 0.02 NG/ML LESS THAN 0.02 NG/ML Albumin 2.9 GM/DL (3.4-5.0) Calcium Level 8.3 MG/DL (8.5-10.1) Potassium Level 3.3 MEQ/L (3.5-5.1) Hemoglobin A1c 6.1 % (4.3-6.0) Hemoglobin 11.8 GM/DL (13.0-17.0) Monocytes (%) (Auto) 9.6 % (0.0-8.0) Test 10/10/17 05:29 White Blood Count 11.3 TH/MM3 (4.0-11.0) Red Blood Count 3.57 MIL/MM3 (4.50-5.90) Hemoglobin 11.8 GM/DL (13.0-17.0) Hematocrit 33.5 % (39.0-51.0) Neutrophils (%) (Auto) 73.9 % (16.0-70.0) Monocytes (%) (Auto) 8.2 % (0.0-8.0) Neutrophils # (Auto) 8.3 TH/MM3 (1.8-7.7) Blood Urea Nitrogen 26 MG/DL (7-18) Creatinine 1.44 MG/DL (0.60-1.30) Random Glucose 133 MG/DL (74-106) Albumin 2.9 GM/DL (3.4-5.0) Phosphorus Level 2.1 MG/DL (2.5-4.9) Estimat Glomerular Filtration Rate 48 ML/MIN (>89) Imaging Last Impressions Pelvis X-Ray 10/08/17 0000 Signed Impressions: Service Date/Time: Sunday, October 08, 2017 11:48 - CONCLUSION: No acute fracture. Mahin Lewis MD Lumbar Spine X-Ray 10/08/17 0000 Signed Impressions: Service Date/Time: Sunday, October 08, 2017 11:49 - CONCLUSION: 1. Degenerative changes within the lumbar spine as above. No definite fracture identified. Daron Rodriguez MD Head CT 10/08/17 0000 Signed Impressions: Service Date/Time: Sunday, October 08, 2017 11:26 - CONCLUSION: 1. Stable senescent changes and moderate periventricular ischemic small vessel white matter demyelination. 2. No acute intracranial abnormality. Hernesto Wheatley MD Chest X-Ray 10/08/17 0000 Signed Impressions: Service Date/Time: Sunday, October 08, 2017 11:57 - CONCLUSION: No acute disease. Mahin Lewis MD Cervical Spine CT 10/08/17 0000 Signed Impressions: Service Date/Time: Sunday, October 08, 2017 11:26 - CONCLUSION: 1. No acute fracture. Probable disc protrusion at C5-6. Left lateral recess stenosis at C6- 7 likely from degenerative change. Joe Salde MD PE at Discharge GENERAL: Awake alert and oriented SKIN: Multiple ecchymotic lesions on four extremities. HEAD: Atraumatic. Normocephalic. EYES: Pupils equal and round. No scleral icterus. No injection or drainage. Extraocular muscles intact ENT: No nasal bleeding or discharge. Mucous membranes pink and moist. Tongue is midline NECK: Trachea midline. No JVD. Supple S1-S2 no S3 or S4 CARDIOVASCULAR: Regular rate and rhythm. RESPIRATORY: No accessory muscle use. Clear to auscultation. Breath sounds equal bilaterally. GASTROINTESTINAL: Abdomen soft, non-tender, nondistended. MUSCULOSKELETAL: Extremities without clubbing, cyanosis, or edema. NEUROLOGICAL: Awake and alert. No obvious cranial nerve deficits. PSYCHIATRIC: Mood is stable today. Hospital Course This is a pleasant 77 y/o Male who had a fall at home, he was supposed to use a walker but he is not been able to do that, he said that he fell backward and states he hit the back of his head. He does complain of headache and some neck discomfort. He does not remember the fall or what caused it. Has some degree of dementia. Is covered in urine. His depends are soaked. Left arm skin tear, Needs aggressive physical therapy and occupational therapy. awaiting final by sales team manager for discharge to SNF. 10/10: Seen in his bedroom, stable, follow recommendations by Dietitian, following recommendations by Physical Therapy. Speech therapy gave recommendations for Regular diet and thin liquids. 10/11: Stable in his bedroom, alert and oriented, no nausea, vomit or diarrhea. okay to discharge for longterm rehabilitation, the patient is not able to take care of himself and has no family support at this time, he has a relative in another state. Assessment and Plan (1) Gait abnormality ICD Code: R26.9 - Unspecified abnormalities of gait and mobility Status: Acute (2) Frequent falls ICD Code: R29.6 - Repeated falls Status: Acute (3) Unable to ambulate ICD Code: R26.2 - Difficulty in walking, not elsewhere classified Status: Acute (4) Failure to thrive in adult ICD Code: R62.7 - Adult failure to thrive Status: Acute (5) Dementia ICD Code: F03.90 - Unspecified dementia without behavioral disturbance Status: Acute (6) Generalized weakness ICD Code: R53.1 - Weakness Status: Acute (7) DM (diabetes mellitus) ICD Code: E11.9 - Type 2 diabetes mellitus without complications Status: Chronic (8) Hyperlipemia ICD Code: E78.5 - Hyperlipidemia, unspecified Status: Chronic (9) Depression ICD Code: F32.9 - Major depressive disorder, single episode, unspecified Status: Chronic (10) DM2 (diabetes mellitus, type 2) ICD Code: E11.9 - Type 2 diabetes mellitus without complications Status: Acute (11) Altered mental status ICD Code: R41.82 - Altered mental status, unspecified Status: Acute Multiple falls with gait instability to continue aggressive Physical Therapy and Occupational therapy awaiting sales team manager for placement he will need longterm rehabilitation. 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 Cachexia and poor oral intake encourage PO intake asked for Dietitian and Speech therapy for Swallow eval. recommended for Regular diet. added Ensure shakes. Depression and anxiety to continue home medicines Dementia and inability to care for himself needs safe place at discharge will probably need SNF, continue Namenda. Diabetes mellitus with inability to take his medications, to continue home medicines at rehab. Hypertension controlled to follow while inhouse and make adjustments. Hyperlipidemia continue Home medicines. CKD III stable. Peripheral neuropathy with decreased sensation and high risk of falls electrolyte derangement secondary to poor oral intake replaced and following. DVT prophylaxis with Heparin. Discharge Planning Discharge to SNF today. Pt Condition on Discharge: Stable Discharge Disposition: Discharge to SNF Discharge Time: <= 30 minutes Discharge Instructions DIET: Follow Instructions for: Heart Healthy Diet Activities you can perform: Regular-No Restrictions rByon Osuna MD Oct 11, 2017 11:49
[2017-10-11] MEDS ORDERED: CALCIUM CARBONATE 500 MG CHEWABLE TAB PO PRN (15:00)
== END 2017-10-11 16:21 | DRG 884 ==
LOC: NEPD 10:29 → NEDA 16:02 → NEDH 20:48 → HCIS 10-09 18:33
PROVIDERS: ADMIT Hospitalist; ATTEND Hospitalist
DX: F03.90 Unspecified dementia, unspecified severity, without behavioral disturbance, psychotic disturbance, mood disturbance, and anxiety (principal); E11.22 Type 2 diabetes mellitus with diabetic chronic kidney disease; E11.42 Type 2 diabetes mellitus with diabetic polyneuropathy; R64 Cachexia; E46 Unspecified protein-calorie malnutrition; E86.0 Dehydration; N18.3 Chronic kidney disease, stage 3 (moderate); R62.7 Adult failure to thrive; R26.2 Difficulty in walking, not elsewhere classified; E78.5 Hyperlipidemia, unspecified; F32.9 Major depressive disorder, single episode, unspecified; M19.90 Unspecified osteoarthritis, unspecified site; M54.2 Cervicalgia; I12.9 Hypertensive chronic kidney disease with stage 1 through stage 4 chronic kidney disease, or unspecified chronic kidney disease; G47.30 Sleep apnea, unspecified; F41.9 Anxiety disorder, unspecified; W19.XXXA Unspecified fall, initial encounter; I25.2 Old myocardial infarction; Z79.84 Long term (current) use of oral hypoglycemic drugs; Z85.46 Personal history of malignant neoplasm of prostate; Z86.73 Personal history of transient ischemic attack (TIA), and cerebral infarction without residual deficits; Y92.009 Unspecified place in unspecified non-institutional (private) residence as the place of occurrence of the external cause
CPT/HCPCS: 70450; 71045; 72100; 72125; 72170; 76937; 80048; 80053; 81001; 82550; 82948; 83036; 83735; 84100; 84439; 84443; 84484; 85025; 93005; J1650; J1815; J3475; J3480; J7030; P9612